=== PATIENT | male | born 1960 | race Caucasian/White ===

== ENCOUNTER 2019-08-23 05:50 | Inpatient (IN) | payer MEDICAID, OTHER ==
[~2019-08-23] VITALS: Ht 188 cm; Wt 149.8 kg
[2019-08-23] MEDS ORDERED: ONDANSETRON 2MG/ML, 2ML IVPush ONE (06:00)
[2019-08-23] MEDS ORDERED: SODIUM CHLORIDE FLUSH 10ML SYR IVF ONE (06:00)
[2019-08-23] MEDS ORDERED: SODIUM CHLORIDE 0.9% 1,000ML IVBOLUS ONE (06:00)
[2019-08-23] MEDS ORDERED: THIAMINE 100MG TABLET PO ONE (06:00)
--- NOTE | 2019-08-23 06:09 | NUR ---
Patient BIB ambulance c/o diarrhea secondary to ingesting rubbing alcohol x3 days ago. Patient states he is a chronic alcoholic but he wants to detox. His last alcoholic drink was last night around 2100. Patient appeared anxious and shaky. Patient does not have a history of seizure withdrawals.
[2019-08-23] MEDS ORDERED: ONDANSETRON 2MG/ML, 2ML ONE (06:21)
[2019-08-23] MEDS ORDERED: THIAMINE 100MG TABLET ONE (06:23)
[2019-08-23] MEDS: PLEASE ENTER ALLERGIES MC SCH ×3 (06:30→22:30)
[2019-08-23] MEDS ORDERED: LORazepam 2 MG/ML, 1ML ONE (06:56)
--- NOTE | 2019-08-23 06:59 | NUR ---
Report from Jese WATKINS. Pt resting in bed watching TV. Pt appears very tremulous throughout body, reports last alcohol was last night at 2100. Pt denies auditory/visual hallucinations or N/V. Discussed pt condition with Dr. Puentes, orders received for ativan 1mg IVP. Pt medicated per order, denies other needs.
[2019-08-23] MEDS ORDERED: LORazepam 2 MG/ML, 1ML IVPush ONE (07:00)
[2019-08-23 07:01] LABS: BASOPHILS # (AUTO) 0.01 x10^3/uL (0-0.1); BASOPHILS % (AUTO) 0 % (0-1); EOSINOPHILS # (AUTO) 0.07 x10^3/uL (0-0.4); EOSINOPHILS % (AUTO) 1 % (1-7); LYMPHOCYTES # (AUTO) 0.59 x10^3/uL (1-3.4); LYMPHOCYTES % (AUTO) 9 % (22-44); MD NO; MEAN CORPUSCULAR HEMOGLOBIN 35.6 pg (27.5-34.5); MEAN CORPUSCULAR HGB CONC 34.1 g/dL (33.2-36.2); MEAN CORPUSCULAR VOLUME 104.5 fL (81-97); MEAN PLATELET VOLUME 7.5 fL (7.4-10.4); MONOCYTES # (AUTO) 0.53 x10^3/uL (0.2-0.8); MONOCYTES % (AUTO) 8 % (2-9); NEUTROPHILS # (AUTO) 5.78 x10^3/uL (1.8-6.8); NEUTROPHILS % (AUTO) 83 % (42-75); PLATELET COUNT 147 x10^3/uL (130-400); RED BLOOD COUNT 4.11 x10^6/uL (4.38-5.82); RED CELL DISTRIBUTION WIDTH 15.9 % (9.4-14.8)
[2019-08-23 07:13] LABS: ALANINE AMINOTRANSFERASE 172 U/L (12-78); ALBUMIN 2.9 g/dL (3.4-5.0); ANION GAP 12 mmol/L (5-15); CALCIUM 8.4 mg/dL (8.5-10.1); CHLORIDE 92 mmol/L (98-107); CREATININE 1.22 mg/dL (0.7-1.3)
[2019-08-23 07:18] LABS: ALKALINE PHOSPHATASE 101 U/L (45-117); BILIRUBIN,TOTAL 1.6 mg/dL (0.2-1.0); TOTAL PROTEIN 6.3 g/dL (6.4-8.2); TROPONIN I 0.023 ng/mL (0.000-0.045)
[2019-08-23 08:10] LABS: ACETONE, SERUM Small (20mg/dL) mg/dL (Negative)
--- NOTE | 2019-08-23 08:19 | NUR ---
Pt's tremors improved significantly after medication. Pt reports feeling better, denies N/V, unable to produce stool sample at this time. Pt resting in bed, denies other needs. [facility] at bedside to evaluate pt for admission.
[2019-08-23] MEDS ORDERED: LABETALOL 5MG/ML, 20ML IVPush PRN (08:30)
[2019-08-23] MEDS ORDERED: ONDANSETRON 2MG/ML, 2ML IVPush PRN (08:30)
[2019-08-23] MEDS: NICOTINE 14MG/24 HR PATCH.TD24 TD SCH (08:30)
[2019-08-23] MEDS ORDERED: CHLORDIAZEPOXIDE 25 MG CAPSULE PO PRN (08:30)
[2019-08-23] MEDS ORDERED: MAGNESIUM SULFATE PMX 2GM/50ML 50 ML IV ONE ×2 (08:30)
[2019-08-23] MEDS ORDERED: PROMETHAZINE 25 MG/ML, 1ML IM PRN (08:30)
[2019-08-23] MEDS ORDERED: SODIUM CHLORIDE 0.9% 1,000 ML IV ONE (08:30)
[2019-08-23] MEDS ORDERED: LORazepam 1MG TABLET PO PRN ×4 (08:30)
[2019-08-23] MEDS ORDERED: LORazepam 2 MG/ML, 1ML IV PRN ×3 (08:30)
--- NOTE | 2019-08-23 08:56 | NUR ---
Report to Vick WATKINS.
[2019-08-23] MEDS ORDERED: MAGNESIUM SULFATE PMX 2GM/50ML 50 ML ONE (09:01)
[2019-08-23 10:07] LABS: HEMOGLOBIN A1C 6.1 % (4.2-6.3)
[2019-08-23] MEDS ORDERED: POTASSIUM CHLORIDE 40 MEQ in SODIUM CHLORIDE 0.9% 500 ML IV ONE (10:23)
[2019-08-23] MEDS: THIAMINE 100MG TABLET PO SCH ×2 (11:20→20:23)
[2019-08-23] MEDS: MULTIVITAMIN 1 TABLET PO SCH (11:20)
[2019-08-23] MEDS: CHLORDIAZEPOXIDE 25 MG CAPSULE PO SCH ×3 (11:20→20:23)
[2019-08-23] MEDS: SODIUM CHLORIDE 0.9% 1,000 ML IV SCH ×2 (11:22→16:31)
[2019-08-23] MEDS: FOLIC ACID 1 MG TABLET PO SCH (11:23)
[2019-08-23] MEDS: LORazepam 2 MG/ML, 1ML IV PRN ×2 (11:37→23:24)
[2019-08-23] MEDS: HEPARIN 5,000 UNITS/ML, 1ML SQ SCH ×2 (11:50→20:23)
[2019-08-23 12:02] VITALS: BP 100/61
[2019-08-23 12:10] LABS: ANION GAP 13 mmol/L (5-15); CALCIUM 8.6 mg/dL (8.5-10.1); CHLORIDE 91 mmol/L (98-107)
[2019-08-23 12:11] LABS: CREATININE 1.28 mg/dL (0.7-1.3)
[2019-08-23 12:43] LABS: INTERNATIONAL NORMALIZED RATIO 0.96 (0.93-1.1); PROTHROMBIN TIME 10.1 Seconds (9.6-11.5)
[2019-08-23] MEDS ORDERED: LISI-170 PO (13:12)
[2019-08-23] MEDS ORDERED: AMLO10TA8 PO (13:12)
[2019-08-23] MEDS ORDERED: LOVA40TA2 PO (13:12)
[2019-08-23] MEDS ORDERED: ASPI-515 PO (13:12)
[2019-08-23] MEDS ORDERED: SERT100T32 PO (13:12)
[2019-08-23] MEDS ORDERED: NAPR-685 PO (13:12)
[2019-08-23] MEDS ORDERED: BUSP7.5T3 PO (13:12)
[2019-08-23 14:04] VITALS: BP 129/80
[2019-08-23] MEDS: LORazepam 0.5MG TABLET PO PRN ×2 (14:32→18:35)
[2019-08-23] MEDS: POTASSIUM CHLORIDE 20 MEQ TAB.ER.PRT PO SCH (16:29)
[2019-08-23 16:42] LABS: ANION GAP 9 mmol/L (5-15); CALCIUM 8.4 mg/dL (8.5-10.1); CHLORIDE 94 mmol/L (98-107); CREATININE 1.24 mg/dL (0.7-1.3)
[2019-08-23 17:58] LABS: OSMOLALITY,URINE 569 mOsm/kg (500-850)
[2019-08-23 18:23] VITALS: BP 123/73
[2019-08-23 20:46] LABS: CLOSTRIDIUM DIFFICILE ANTIGEN NEGATIVE; CLOSTRIDIUM DIFFICILE TOXIN NEGATIVE (Negative)
[2019-08-23 21:29] LABS: ANION GAP 9 mmol/L (5-15); CALCIUM 8.1 mg/dL (8.5-10.1); CHLORIDE 96 mmol/L (98-107); CREATININE 1.11 mg/dL (0.7-1.3)
[2019-08-23 23:24] VITALS: BP 142/61
[2019-08-24 00:54] VITALS: BP 154/99
[2019-08-24] MEDS: HEPARIN 5,000 UNITS/ML, 1ML SQ SCH ×2 (05:14→12:46)
[2019-08-24 06:08] LABS: BASOPHILS # (AUTO) 0.02 x10^3/uL (0-0.1); BASOPHILS % (AUTO) 0 % (0-1); EOSINOPHILS # (AUTO) 0.02 x10^3/uL (0-0.4); EOSINOPHILS % (AUTO) 0 % (1-7); LYMPHOCYTES # (AUTO) 0.79 x10^3/uL (1-3.4); LYMPHOCYTES % (AUTO) 14 % (22-44); MD NO; MEAN CORPUSCULAR HEMOGLOBIN 34.9 pg (27.5-34.5); MEAN CORPUSCULAR HGB CONC 33.6 g/dL (33.2-36.2); MEAN PLATELET VOLUME 7.1 fL (7.4-10.4); MONOCYTES # (AUTO) 0.49 x10^3/uL (0.2-0.8); MONOCYTES % (AUTO) 8 % (2-9); NEUTROPHILS # (AUTO) 4.45 x10^3/uL (1.8-6.8); NEUTROPHILS % (AUTO) 77 % (42-75); PLATELET COUNT 146 x10^3/uL (130-400); RED BLOOD COUNT 3.67 x10^6/uL (4.38-5.82); RED CELL DISTRIBUTION WIDTH 15.9 % (9.4-14.8)
[2019-08-24 06:20] LABS: ALANINE AMINOTRANSFERASE 180 U/L (12-78); ALBUMIN 2.8 g/dL (3.4-5.0); ANION GAP 8 mmol/L (5-15); CALCIUM 8.1 mg/dL (8.5-10.1); CHLORIDE 98 mmol/L (98-107); CREATININE 0.96 mg/dL (0.7-1.3)
[2019-08-24 06:22] LABS: ALKALINE PHOSPHATASE 103 U/L (45-117); BILIRUBIN,TOTAL 1.3 mg/dL (0.2-1.0); TOTAL PROTEIN 6.1 g/dL (6.4-8.2)
[2019-08-24] MEDS: PLEASE ENTER ALLERGIES MC SCH (06:30)
[2019-08-24 06:50] VITALS: BP 160/102
[2019-08-24] MEDS ORDERED: PROPOFOL 100 ML IV ONE (08:00)
[2019-08-24] MEDS ORDERED: ETOMIDATE 20 MG/10 ML ONE (08:00)
[2019-08-24] MEDS: FOLIC ACID 1 MG TABLET PO SCH (08:09)
[2019-08-24] MEDS: POTASSIUM CHLORIDE 20 MEQ TAB.ER.PRT PO SCH (08:09)
[2019-08-24] MEDS: THIAMINE 100MG TABLET PO SCH (08:09)
[2019-08-24] MEDS: MULTIVITAMIN 1 TABLET PO SCH (08:09)
[2019-08-24] MEDS: NICOTINE 14MG/24 HR PATCH.TD24 TD SCH ×2 (08:10→12:46)
[2019-08-24] MEDS ORDERED: MAGNESIUM OXIDE 400 MG TABLET PO SCH (09:00)
[2019-08-24] MEDS ORDERED: ASPIRIN 81 MG TABLET EC PO SCH (10:00)
[2019-08-24] MEDS: AMLODIPINE 10 MG TAB PO SCH (10:19)
[2019-08-24] MEDS: LISINOPRIL 40 MG TABLET PO SCH (10:19)
[2019-08-24] MEDS: CHLORDIAZEPOXIDE 25 MG CAPSULE PO SCH (10:19)
[2019-08-24] MEDS: BUSPIRONE 10 MG TABLET PO SCH ×2 (10:19→22:35)
[2019-08-24] MEDS: SERTRALINE 100MG TABLET PO SCH (10:19)
[2019-08-24 11:07] LABS: ANION GAP 9 mmol/L (5-15); CALCIUM 8.6 mg/dL (8.5-10.1); CHLORIDE 98 mmol/L (98-107); CREATININE 0.94 mg/dL (0.7-1.3)
[2019-08-24] MEDS: LORazepam 2 MG/ML, 1ML IV PRN ×4 (12:34→15:25)
[2019-08-24 13:03] VITALS: BP 168/97
[2019-08-24] MEDS: SODIUM CHLORIDE 0.9% 1,000 ML IV SCH (13:44)
[2019-08-24] MEDS ORDERED: PHENOBARBITAL SODIUM 820 MG in SODIUM CHLORIDE 0.9% 50 ML IV ONE (16:00)
[2019-08-24] MEDS ORDERED: PHENOBARBITAL ETOH DETOX PER PHARMACY MC PRN (16:00)
[2019-08-24] MEDS: hydrALAzine 20 MG/ML, 1ML IVPush PRN (16:21)
[2019-08-24] MEDS ORDERED: THIAMINE 200 MG in SODIUM CHLORIDE 0.9% 50 ML IV ONE (17:00)
[2019-08-24] MEDS ORDERED: MAGNESIUM SULFATE PMX 2GM/50ML 50 ML IV ONE (17:00)
[2019-08-24 17:02] LABS: MEAN CORPUSCULAR HEMOGLOBIN 35.2 pg (27.5-34.5); MEAN CORPUSCULAR HGB CONC 32.9 g/dL (33.2-36.2); MEAN PLATELET VOLUME 7.5 fL (7.4-10.4); PLATELET COUNT 182 x10^3/uL (130-400); RED BLOOD COUNT 3.89 x10^6/uL (4.38-5.82); RED CELL DISTRIBUTION WIDTH 15.8 % (9.4-14.8)
[2019-08-24 17:10] LABS: ALANINE AMINOTRANSFERASE 276 U/L (12-78); ANION GAP 9 mmol/L (5-15); CALCIUM 8.5 mg/dL (8.5-10.1); CHLORIDE 100 mmol/L (98-107); CREATININE 1.05 mg/dL (0.7-1.3)
[2019-08-24 17:15] LABS: ALKALINE PHOSPHATASE 133 U/L (45-117); BILIRUBIN,TOTAL 1.1 mg/dL (0.2-1.0); TOTAL PROTEIN 6.6 g/dL (6.4-8.2); TROPONIN I < 0.015 ng/mL (0.000-0.045)
[2019-08-24] MEDS ORDERED: PHENYLEPHRINE 10 MG/ML ONE (17:22)
[2019-08-24] MEDS ORDERED: EPINEPHRINE 1 MG/ML, 1ML ONE (17:25)
[2019-08-24] MEDS ORDERED: NOREPINEPHRINE 4 MG in SODIUM CHLORIDE 0.9% 246 ML IV PRN ×3 (17:30→19:00)
[2019-08-24] MEDS ORDERED: DEXTROSE 50%, 50ML SYRINGE IVPush PRN (18:30)
[2019-08-24] MEDS: ALBUTEROL/IPRATROPIUM 2.5MG/0.5MG, 3 ML INLINE SCH ×3 (18:30→22:00)
[2019-08-24] MEDS ORDERED: DEXTROSE 4 GM TAB.CHEW PO PRN (18:30)
[2019-08-24] MEDS ORDERED: SENNA/DOCUSATE TABLET NG PRN (18:30)
[2019-08-24] MEDS ORDERED: LIDOCAINE-MPF 1%, 2ML ENDO PRN (18:30)
[2019-08-24] MEDS ORDERED: BISACODYL 10 MG SUPP PR PRN (18:30)
[2019-08-24] MEDS ORDERED: GLUCAGON 1 MG IM PRN (18:30)
[2019-08-24] MEDS ORDERED: SODIUM CHLORIDE 0.9% 1,000ML IV SCH (18:30)
[2019-08-24] MEDS ORDERED: SENNA 176 MG/5 ML ORAL SOL NG PRN (18:30)
[2019-08-24] MEDS ORDERED: PHARMACY MAY ADJ FOR RENAL FX MC SCH (18:30)
[2019-08-24] MEDS ORDERED: LACTULOSE 20 GM/30 ML UDC NG PRN (18:30)
[2019-08-24 18:59] LABS: MD YES
[2019-08-24 19:04] LABS: BAND#(MANUAL) 0.25 x10^3/uL; BANDS%(MANUAL) 2 % (0-7); BASOS#(MANUAL) 0.13 x10^3/uL (0-0.1); BASOS% (MANUAL) 1 % (0-1); EOS#(MANUAL) 0.25 x10^3/uL (0.0-0.4); EOS% (MANUAL) 2 % (1-7); LYMPH#(MANUAL) 3.63 x10^3/uL (1-3.4); LYMPHS% (MANUAL) 29 % (22-44); METAMYELOCYTES# (MANUAL) 0.13 x10^3/uL (0-0); METAMYELOCYTES% (MANUAL) 1 % (0-1); MONOS% (MANUAL) 4 % (2-9); MYELOCYTES# (MANUAL) 0.13 x10^3/uL (0-0); MYELOCYTES% (MANUAL) 1 % (0-0); NRBC % (MANUAL) 1 % (0-1); REACTIVE LYMPHS # (MANUAL) 0.63 x10^3/uL (0-0); REACTIVE LYMPHS % (MANUAL) 5 % (0-0); SEG#(MANUAL) 6.88 x10^3/uL (1.8-6.8); SEGS% (MANUAL) 55 % (42-75)
[2019-08-24 19:05] LABS: <PLATELET ESTIMATE> ADEQUATE; <PLT MORPHOLOGY> NORMAL PLT MORPH; POLYCHROMASIA 1+
[2019-08-24] MEDS ORDERED: VASOPRESSIN 100 UNIT in SODIUM CHLORIDE 0.9% 495 ML IV SCH (19:13)
[2019-08-24] MEDS ORDERED: NOREPINEPHRINE 8 MG in SODIUM CHLORIDE 0.9% 246 ML IV PRN (19:15)
[2019-08-24] MEDS ORDERED: SODIUM CHLORIDE 0.9% 1,000ML IVBOLUS PRN (19:30)
[2019-08-24] MEDS: NOREPINEPHRINE 8 MG in SODIUM CHLORIDE 0.9% 242 ML IV PRN ×2 (19:36→23:32)
[2019-08-24] MEDS: PROPOFOL 100 ML IV PRN ×3 (19:52→22:53)
[2019-08-24 20:54] LABS: CULTURE INDICATED? YES; MICROSCOPIC INDICATED
[2019-08-24 20:57] LABS: AMPHETAMINE SCREEN, URINE Negative (Negative); BARBITURATE SCREEN, URINE Positive (Negative); BENZODIAZEPINE SCREEN, URINE Positive (Negative); CANNABINOID SCREEN, URINE Negative (Negative); COCAINE SCREEN, URINE Negative (Negative); METHADONE SCREEN, URINE Negative (Negative); OPIATE SCREEN, URINE Negative (Negative)
[2019-08-24] MEDS ORDERED: OMNIPAQUE 350 MG/ML, 100ML BOTTLE ONE (20:57)
[2019-08-24] MEDS: SODIUM CHLORIDE FLUSH 10ML SYR IVF SCH (21:00)
[2019-08-24 22:22] LABS: TRIGLYCERIDES 165 mg/dL (50-200)
[2019-08-24 22:25] LABS: TROPONIN I 0.046 ng/mL (0.000-0.045)
[2019-08-24 22:30] LABS: OCCULT BLOOD POSITIVE (NEGATIVE)
[2019-08-24] MEDS: LOVASTATIN 40 MG TABLET PO SCH (22:35)
[2019-08-24] MEDS: FENTANYL PF 100 MCG/2ML IVPush PRN (23:02)
[2019-08-24] MEDS: FOLIC ACID 1 MG, THIAMINE 200 MG, MVI ADULT 10 ML in DEXTROSE 5% 1,000 ML IV SCH (23:05)
[2019-08-24 23:43] LABS: MEAN CORPUSCULAR HEMOGLOBIN 35.7 pg (27.5-34.5); MEAN CORPUSCULAR HGB CONC 33.6 g/dL (33.2-36.2); MEAN CORPUSCULAR VOLUME 106.1 fL (81-97); MEAN PLATELET VOLUME 7.4 fL (7.4-10.4); PLATELET COUNT 182 x10^3/uL (130-400); RED BLOOD COUNT 3.56 x10^6/uL (4.38-5.82); RED CELL DISTRIBUTION WIDTH 15.8 % (9.4-14.8)
[2019-08-24 23:49] LABS: ALANINE AMINOTRANSFERASE 297 U/L (12-78); ALBUMIN 2.6 g/dL (3.4-5.0); ANION GAP 11 mmol/L (5-15); CALCIUM 7.8 mg/dL (8.5-10.1); CHLORIDE 103 mmol/L (98-107); CREATININE 0.88 mg/dL (0.7-1.3)
[2019-08-24 23:51] LABS: ALKALINE PHOSPHATASE 103 U/L (45-117); BILIRUBIN,TOTAL 1.3 mg/dL (0.2-1.0); TOTAL PROTEIN 5.7 g/dL (6.4-8.2)
[2019-08-25] MEDS ORDERED: PHENOBARBITAL SODIUM 65 MG/ML, 1ML IM SCH
[2019-08-25 00:05] LABS: MD YES
[2019-08-25 00:09] LABS: BAND#(MANUAL) 0.09 x10^3/uL; BANDS%(MANUAL) 1 % (0-7); LYMPH#(MANUAL) 0.92 x10^3/uL (1-3.4); LYMPHS% (MANUAL) 10 % (22-44); METAMYELOCYTES# (MANUAL) 0.09 x10^3/uL (0-0); METAMYELOCYTES% (MANUAL) 1 % (0-1); MONOS#(MANUAL) 0.74 x10^3/uL (0.3-2.7); MONOS% (MANUAL) 8 % (2-9); REACTIVE LYMPHS # (MANUAL) 0.09 x10^3/uL (0-0); REACTIVE LYMPHS % (MANUAL) 1 % (0-0); SEG#(MANUAL) 7.27 x10^3/uL (1.8-6.8); SEGS% (MANUAL) 79 % (42-75)
[2019-08-25 00:10] LABS: <PLATELET ESTIMATE> ADEQUATE; <PLT MORPHOLOGY> NORMAL PLT MORPH; POLYCHROMASIA 1+
[2019-08-25] MEDS: HEPARIN 5,000 UNITS/ML, 1ML SQ SCH ×3 (00:29→17:59)
[2019-08-25] MEDS ORDERED: SODIUM CHLORIDE 0.9%, 500ML IVBOLUS ONE (00:30)
[2019-08-25] MEDS: PROPOFOL 100 ML IV PRN ×8 (00:51→19:12)
[2019-08-25] MEDS: ALBUTEROL/IPRATROPIUM 2.5MG/0.5MG, 3 ML INLINE SCH ×10 (01:35→22:30)
[2019-08-25] MEDS: NOREPINEPHRINE 8 MG in SODIUM CHLORIDE 0.9% 242 ML IV PRN ×2 (04:38→12:46)
[2019-08-25 05:10] LABS: BASOPHILS # (AUTO) 0.01 x10^3/uL (0-0.1); BASOPHILS % (AUTO) 0 % (0-1); EOSINOPHILS # (AUTO) 0.02 x10^3/uL (0-0.4); EOSINOPHILS % (AUTO) 0 % (1-7); LYMPHOCYTES # (AUTO) 0.67 x10^3/uL (1-3.4); LYMPHOCYTES % (AUTO) 8 % (22-44); MD NO; MEAN CORPUSCULAR HEMOGLOBIN 35.3 pg (27.5-34.5); MEAN CORPUSCULAR HGB CONC 33.4 g/dL (33.2-36.2); MEAN CORPUSCULAR VOLUME 105.8 fL (81-97); MEAN PLATELET VOLUME 7.4 fL (7.4-10.4); MONOCYTES # (AUTO) 0.06 x10^3/uL (0.2-0.8); MONOCYTES % (AUTO) 1 % (2-9); NEUTROPHILS # (AUTO) 7.23 x10^3/uL (1.8-6.8); NEUTROPHILS % (AUTO) 91 % (42-75); PLATELET COUNT 169 x10^3/uL (130-400); RED BLOOD COUNT 3.49 x10^6/uL (4.38-5.82)
[2019-08-25 05:17] LABS: ALANINE AMINOTRANSFERASE 255 U/L (12-78); ALBUMIN 2.4 g/dL (3.4-5.0); ANION GAP 11 mmol/L (5-15); CALCIUM 7.7 mg/dL (8.5-10.1); CHLORIDE 103 mmol/L (98-107); CREATININE 0.84 mg/dL (0.7-1.3)
[2019-08-25 05:19] LABS: ALKALINE PHOSPHATASE 97 U/L (45-117); BILIRUBIN,TOTAL 1.3 mg/dL (0.2-1.0); TOTAL PROTEIN 5.4 g/dL (6.4-8.2)
[2019-08-25 05:59] LABS: TROPONIN I 0.037 ng/mL (0.000-0.045)
[2019-08-25] MEDS: LISINOPRIL 40 MG TABLET PO SCH (08:51)
[2019-08-25] MEDS: AMLODIPINE 10 MG TAB PO SCH (08:52)
[2019-08-25] MEDS: SERTRALINE 100MG TABLET PO SCH (09:03)
[2019-08-25] MEDS: BUSPIRONE 10 MG TABLET PO SCH ×2 (09:03→21:15)
[2019-08-25] MEDS: SODIUM CHLORIDE FLUSH 10ML SYR IVF SCH ×2 (09:04→21:15)
[2019-08-25] MEDS: ASPIRIN 81 MG TABLET CHEW PO SCH (09:21)
[2019-08-25] MEDS ORDERED: CALCIUM CHLORIDE 13.6 MEQ in SODIUM CHLORIDE 0.9% 100 ML IV ONE (10:00)
[2019-08-25] MEDS: POTASSIUM CHLORIDE 20 MEQ PACKET PO SCH ×2 (10:19→17:58)
[2019-08-25] MEDS: PANTOPRAZOLE 40 MG IV IVPush SCH (10:19)
[2019-08-25] MEDS: SODIUM CHLORIDE 0.9% 1,000 ML IV SCH (12:46)
[2019-08-25] MEDS ORDERED: COSYNTROPIN 0.25 MG IM ONE (15:30)
[2019-08-25] MEDS: PIPERACILLIN/TAZO/PMX 3.375GM 50 ML IV SCH ×2 (15:32→21:15)
[2019-08-25] MEDS: FOLIC ACID 1 MG, THIAMINE 200 MG, MVI ADULT 10 ML in DEXTROSE 5% 1,000 ML IV SCH (17:51)
[2019-08-25] MEDS: LOVASTATIN 40 MG TABLET PO SCH (21:15)
[2019-08-26] MEDS: HEPARIN 5,000 UNITS/ML, 1ML SQ SCH ×3 (00:33→16:58)
[2019-08-26] MEDS: PROPOFOL 100 ML IV PRN ×7 (01:48→23:40)
[2019-08-26] MEDS: ALBUTEROL/IPRATROPIUM 2.5MG/0.5MG, 3 ML INLINE SCH ×6 (02:30→22:30)
[2019-08-26] MEDS: PIPERACILLIN/TAZO/PMX 3.375GM 50 ML IV SCH ×4 (03:30→20:11)
[2019-08-26 05:00] LABS: MEAN CORPUSCULAR HEMOGLOBIN 35.3 pg (27.5-34.5); MEAN CORPUSCULAR HGB CONC 33.2 g/dL (33.2-36.2); MEAN CORPUSCULAR VOLUME 106.3 fL (81-97); MEAN PLATELET VOLUME 7.4 fL (7.4-10.4); PLATELET COUNT 208 x10^3/uL (130-400); RED BLOOD COUNT 3.22 x10^6/uL (4.38-5.82); RED CELL DISTRIBUTION WIDTH 15.9 % (9.4-14.8)
[2019-08-26 05:51] LABS: BASOPHILS # (AUTO) 0.03 x10^3/uL (0-0.1); BASOPHILS % (AUTO) 0 % (0-1); EOSINOPHILS # (AUTO) 0.18 x10^3/uL (0-0.4); EOSINOPHILS % (AUTO) 3 % (1-7); LYMPHOCYTES # (AUTO) 1.02 x10^3/uL (1-3.4); LYMPHOCYTES % (AUTO) 14 % (22-44); MD SCAN; MONOCYTES % (AUTO) 9 % (2-9); NEUTROPHILS # (AUTO) 5.54 x10^3/uL (1.8-6.8); NEUTROPHILS % (AUTO) 74 % (42-75)
[2019-08-26 06:58] LABS: CHLORIDE 107 mmol/L (98-107)
[2019-08-26 07:03] LABS: ANION GAP 10 mmol/L (5-15); CALCIUM 8.5 mg/dL (8.5-10.1); CREATININE 0.83 mg/dL (0.7-1.3)
[2019-08-26] MEDS: PANTOPRAZOLE 40 MG IV IVPush SCH (08:52)
[2019-08-26] MEDS: BUSPIRONE 10 MG TABLET PO SCH ×2 (08:52→20:11)
[2019-08-26] MEDS: NICOTINE 14MG/24 HR PATCH.TD24 TD SCH (08:52)
[2019-08-26] MEDS: SERTRALINE 100MG TABLET PO SCH (08:53)
[2019-08-26] MEDS: ASPIRIN 81 MG TABLET CHEW PO SCH (08:53)
[2019-08-26] MEDS: LISINOPRIL 40 MG TABLET PO SCH (08:54)
[2019-08-26] MEDS: AMLODIPINE 10 MG TAB PO SCH (08:54)
[2019-08-26] MEDS: SODIUM CHLORIDE FLUSH 10ML SYR IVF SCH ×2 (08:54→20:12)
[2019-08-26] MEDS: SODIUM CHLORIDE 0.9% 1,000 ML IV SCH (08:56)
--- NOTE | 2019-08-26 13:02 | NUR ---
TF GOAL: with or without propofol: VITAL HIGH PROTEIN @ 85ML/HR
[2019-08-26] MEDS: LOVASTATIN 40 MG TABLET PO SCH (20:11)
[2019-08-26] MEDS: NOREPINEPHRINE 8 MG in SODIUM CHLORIDE 0.9% 242 ML IV PRN (20:11)
[2019-08-26] MEDS: FOLIC ACID 1 MG, THIAMINE 200 MG, MVI ADULT 10 ML in DEXTROSE 5% 1,000 ML IV SCH (21:45)
[2019-08-27] MEDS: HEPARIN 5,000 UNITS/ML, 1ML SQ SCH ×3 (01:02→17:49)
[2019-08-27] MEDS: PROPOFOL 100 ML IV PRN ×6 (02:23→17:50)
[2019-08-27] MEDS: ALBUTEROL/IPRATROPIUM 2.5MG/0.5MG, 3 ML INLINE SCH ×6 (02:30→22:41)
[2019-08-27] MEDS: PIPERACILLIN/TAZO/PMX 3.375GM 50 ML IV SCH ×4 (04:05→21:34)
[2019-08-27 05:04] LABS: ANION GAP 6 mmol/L (5-15); CALCIUM 8.3 mg/dL (8.5-10.1); CHLORIDE 106 mmol/L (98-107); TRIGLYCERIDES 178 mg/dL (50-200)
[2019-08-27 05:07] LABS: CREATININE 0.88 mg/dL (0.7-1.3)
[2019-08-27 05:08] LABS: BASOPHILS # (AUTO) 0.04 x10^3/uL (0-0.1); BASOPHILS % (AUTO) 1 % (0-1); EOSINOPHILS # (AUTO) 0.13 x10^3/uL (0-0.4); EOSINOPHILS % (AUTO) 2 % (1-7); LYMPHOCYTES # (AUTO) 0.96 x10^3/uL (1-3.4); LYMPHOCYTES % (AUTO) 16 % (22-44); MD NO; MEAN CORPUSCULAR HEMOGLOBIN 35.1 pg (27.5-34.5); MEAN CORPUSCULAR HGB CONC 33.7 g/dL (33.2-36.2); MEAN CORPUSCULAR VOLUME 104.2 fL (81-97); MONOCYTES # (AUTO) 0.81 x10^3/uL (0.2-0.8); MONOCYTES % (AUTO) 14 % (2-9); NEUTROPHILS % (AUTO) 67 % (42-75); PLATELET COUNT 249 x10^3/uL (130-400); RED BLOOD COUNT 3.14 x10^6/uL (4.38-5.82)
[2019-08-27] MEDS: SODIUM CHLORIDE FLUSH 10ML SYR IVF SCH ×2 (07:50→21:35)
[2019-08-27] MEDS: NICOTINE 14MG/24 HR PATCH.TD24 TD SCH (07:50)
[2019-08-27] MEDS: SERTRALINE 100MG TABLET PO SCH (07:51)
[2019-08-27] MEDS: ASPIRIN 81 MG TABLET CHEW PO SCH (07:51)
[2019-08-27] MEDS: BUSPIRONE 10 MG TABLET PO SCH ×2 (07:51→21:34)
[2019-08-27] MEDS: LISINOPRIL 40 MG TABLET PO SCH (07:52)
[2019-08-27] MEDS: AMLODIPINE 10 MG TAB PO SCH (07:52)
[2019-08-27] MEDS: PANTOPRAZOLE 40 MG IV IVPush SCH (07:52)
[2019-08-27] MEDS: FENTANYL PF 100 MCG/2ML IVPush PRN (07:52)
[2019-08-27] MEDS ORDERED: POTASSIUM CHLORIDE 40 MEQ in SODIUM CHLORIDE 0.9% 100 ML IV ONE (10:00)
[2019-08-27] MEDS ORDERED: PHENOBARBITAL SODIUM IV ONE ×2 (10:30→15:00)
[2019-08-27] MEDS ORDERED: SODIUM CHLORIDE 0.9% IV ONE ×2 (10:30→15:00)
[2019-08-27] MEDS ORDERED: PHENOBARBITAL SODIUM 65 MG/ML, 1ML IM SCH (16:30)
[2019-08-27] MEDS ORDERED: ATROPINE SYRINGE 0.1 MG/ML, 10ML ONE (21:29)
[2019-08-27] MEDS ORDERED: ATROPINE SYRINGE 0.1 MG/ML, 10ML IVPush PRN (21:30)
[2019-08-27] MEDS: LOVASTATIN 40 MG TABLET PO SCH (21:34)
[2019-08-27] MEDS: PHENOBARBITAL SODIUM 65 MG/ML, 1ML IM SCH (21:35)
[2019-08-27 21:49] LABS: TROPONIN I < 0.015 ng/mL (0.000-0.045)
[2019-08-28] MEDS: PROPOFOL 100 ML IV PRN ×2 (02:12→05:46)
[2019-08-28] MEDS: ALBUTEROL/IPRATROPIUM 2.5MG/0.5MG, 3 ML INLINE SCH ×6 (02:54→22:20)
[2019-08-28] MEDS: PIPERACILLIN/TAZO/PMX 3.375GM 50 ML IV SCH ×4 (03:33→21:30)
[2019-08-28] MEDS: HEPARIN 5,000 UNITS/ML, 1ML SQ SCH ×3 (03:33→16:40)
[2019-08-28 04:34] LABS: ANION GAP 8 mmol/L (5-15); CALCIUM 8.5 mg/dL (8.5-10.1); CHLORIDE 109 mmol/L (98-107); CREATININE 0.87 mg/dL (0.7-1.3)
[2019-08-28 05:00] LABS: BASOPHILS # (AUTO) 0.02 x10^3/uL (0-0.1); BASOPHILS % (AUTO) 0 % (0-1); EOSINOPHILS # (AUTO) 0.13 x10^3/uL (0-0.4); EOSINOPHILS % (AUTO) 3 % (1-7); LYMPHOCYTES # (AUTO) 0.88 x10^3/uL (1-3.4); LYMPHOCYTES % (AUTO) 21 % (22-44); MD NO; MEAN CORPUSCULAR HEMOGLOBIN 35.9 pg (27.5-34.5); MEAN CORPUSCULAR HGB CONC 33.9 g/dL (33.2-36.2); MEAN CORPUSCULAR VOLUME 106.1 fL (81-97); MEAN PLATELET VOLUME 7.3 fL (7.4-10.4); MONOCYTES # (AUTO) 0.71 x10^3/uL (0.2-0.8); MONOCYTES % (AUTO) 17 % (2-9); NEUTROPHILS # (AUTO) 2.53 x10^3/uL (1.8-6.8); NEUTROPHILS % (AUTO) 59 % (42-75); PLATELET COUNT 311 x10^3/uL (130-400); RED BLOOD COUNT 3.14 x10^6/uL (4.38-5.82); RED CELL DISTRIBUTION WIDTH 16.6 % (9.4-14.8)
[2019-08-28] MEDS: NICOTINE 14MG/24 HR PATCH.TD24 TD SCH (08:43)
[2019-08-28] MEDS: PANTOPRAZOLE 40 MG IV IVPush SCH (08:44)
[2019-08-28] MEDS: SERTRALINE 100MG TABLET PO SCH (08:45)
[2019-08-28] MEDS: BUSPIRONE 10 MG TABLET PO SCH ×2 (08:45→21:31)
[2019-08-28] MEDS: ASPIRIN 81 MG TABLET CHEW PO SCH (08:45)
[2019-08-28] MEDS: SODIUM CHLORIDE FLUSH 10ML SYR IVF SCH ×2 (08:50→21:31)
[2019-08-28] MEDS ORDERED: FUROSEMIDE 40 MG/4 ML ONE (08:52)
[2019-08-28] MEDS: AMLODIPINE 10 MG TAB PO SCH (08:54)
[2019-08-28] MEDS: FUROSEMIDE 40 MG/4 ML IV SCH ×2 (08:54→18:17)
[2019-08-28] MEDS: LISINOPRIL 40 MG TABLET PO SCH (08:54)
[2019-08-28] MEDS ORDERED: POTASSIUM CHLORIDE 10% 40 MEQ/30 ML UDC PO ONE (09:00)
[2019-08-28] MEDS: DEXMEDETOMIDINE 1,000 MCG in SODIUM CHLORIDE 0.9% 240 ML IV PRN ×2 (09:47→18:31)
[2019-08-28] MEDS: PHENOBARBITAL SODIUM 65 MG/ML, 1ML IM SCH ×2 (09:47→21:30)
[2019-08-28] MEDS ORDERED: POTASSIUM CHLORIDE 10% 20 MEQ/15 ML UDC PO ONE (17:00)
[2019-08-28] MEDS: LOVASTATIN 40 MG TABLET PO SCH (21:31)
[2019-08-28] MEDS: hydrALAzine 20 MG/ML, 1ML IVPush PRN (21:35)
[2019-08-29] MEDS: HEPARIN 5,000 UNITS/ML, 1ML SQ SCH ×3 (01:50→17:47)
[2019-08-29] MEDS: FENTANYL PF 100 MCG/2ML IVPush PRN (01:50)
[2019-08-29] MEDS: ALBUTEROL/IPRATROPIUM 2.5MG/0.5MG, 3 ML INLINE SCH ×6 (02:16→22:39)
[2019-08-29] MEDS: PIPERACILLIN/TAZO/PMX 3.375GM 50 ML IV SCH ×4 (03:00→21:43)
[2019-08-29] MEDS: hydrALAzine 20 MG/ML, 1ML IVPush PRN (05:07)
[2019-08-29 05:12] LABS: ANION GAP 8 mmol/L (5-15); CALCIUM 8.4 mg/dL (8.5-10.1); CHLORIDE 109 mmol/L (98-107)
[2019-08-29 05:14] LABS: BASOPHILS # (AUTO) 0.01 x10^3/uL (0-0.1); BASOPHILS % (AUTO) 0 % (0-1); EOSINOPHILS # (AUTO) 0.13 x10^3/uL (0-0.4); EOSINOPHILS % (AUTO) 2 % (1-7); LYMPHOCYTES # (AUTO) 0.77 x10^3/uL (1-3.4); LYMPHOCYTES % (AUTO) 14 % (22-44); MD NO; MEAN CORPUSCULAR HEMOGLOBIN 35.6 pg (27.5-34.5); MEAN CORPUSCULAR HGB CONC 33.9 g/dL (33.2-36.2); MEAN CORPUSCULAR VOLUME 105.2 fL (81-97); MEAN PLATELET VOLUME 7.3 fL (7.4-10.4); MONOCYTES # (AUTO) 0.82 x10^3/uL (0.2-0.8); MONOCYTES % (AUTO) 15 % (2-9); NEUTROPHILS % (AUTO) 69 % (42-75); PLATELET COUNT 403 x10^3/uL (130-400); RED CELL DISTRIBUTION WIDTH 16.4 % (9.4-14.8)
[2019-08-29] MEDS: DEXMEDETOMIDINE 1,000 MCG in SODIUM CHLORIDE 0.9% 240 ML IV PRN (05:33)
[2019-08-29] MEDS: PHENOBARBITAL SODIUM 65 MG/ML, 1ML IM SCH ×2 (09:00→21:43)
[2019-08-29] MEDS: ASPIRIN 81 MG TABLET CHEW PO SCH (09:00)
[2019-08-29] MEDS: SERTRALINE 100MG TABLET PO SCH (09:10)
[2019-08-29] MEDS: NICOTINE 14MG/24 HR PATCH.TD24 TD SCH (09:10)
[2019-08-29] MEDS: LISINOPRIL 40 MG TABLET PO SCH (09:10)
[2019-08-29] MEDS: BUSPIRONE 10 MG TABLET PO SCH ×2 (09:10→20:17)
[2019-08-29] MEDS: AMLODIPINE 10 MG TAB PO SCH (09:10)
[2019-08-29] MEDS: SODIUM CHLORIDE FLUSH 10ML SYR IVF SCH ×2 (09:11→21:43)
[2019-08-29] MEDS: PANTOPRAZOLE 40 MG IV IVPush SCH (09:34)
[2019-08-29] MEDS ORDERED: PHENOBARBITAL SODIUM 65 MG/ML, 1ML IM SCH (12:30)
[2019-08-29] MEDS ORDERED: FUROSEMIDE 20 MG/2 ML IV SCH (13:00)
[2019-08-29] MEDS: LOVASTATIN 40 MG TABLET PO SCH (20:17)
[2019-08-29] MEDS ORDERED: PHENOBARBITAL 20 MG/5 ML ORAL SOL NG SCH (21:00)
[2019-08-30] MEDS: PIPERACILLIN/TAZO/PMX 3.375GM 50 ML IV SCH ×4 (02:27→20:47)
[2019-08-30] MEDS: HEPARIN 5,000 UNITS/ML, 1ML SQ SCH ×3 (02:27→18:01)
[2019-08-30] MEDS: ALBUTEROL/IPRATROPIUM 2.5MG/0.5MG, 3 ML INLINE SCH ×6 (02:57→22:57)
[2019-08-30 05:01] LABS: MEAN CORPUSCULAR HEMOGLOBIN 35.4 pg (27.5-34.5); MEAN CORPUSCULAR HGB CONC 33.3 g/dL (33.2-36.2); MEAN CORPUSCULAR VOLUME 106.4 fL (81-97); MEAN PLATELET VOLUME 7.5 fL (7.4-10.4); PLATELET COUNT 414 x10^3/uL (130-400); RED BLOOD COUNT 3.44 x10^6/uL (4.38-5.82); RED CELL DISTRIBUTION WIDTH 16.4 % (9.4-14.8)
[2019-08-30 05:08] LABS: ALBUMIN 2.1 g/dL (3.4-5.0); ANION GAP 9 mmol/L (5-15); CALCIUM 8.5 mg/dL (8.5-10.1); CHLORIDE 110 mmol/L (98-107)
[2019-08-30 05:12] LABS: ALANINE AMINOTRANSFERASE 68 U/L (12-78); ALKALINE PHOSPHATASE 90 U/L (45-117); BILIRUBIN, DIRECT 0.4 mg/dL (0.1-0.2); BILIRUBIN,INDIRECT 0.5 mg/dL (0.0-2.0); BILIRUBIN,TOTAL 0.9 mg/dL (0.2-1.0); CREATININE 0.88 mg/dL (0.7-1.3); TOTAL PROTEIN 5.9 g/dL (6.4-8.2)
[2019-08-30 05:35] LABS: MD YES
[2019-08-30 05:37] LABS: <PLATELET ESTIMATE> ADEQUATE; <PLT MORPHOLOGY> NORMAL PLT MORPH; ANISOCYTOSIS 1+; BAND#(MANUAL) 0.08 x10^3/uL; BANDS%(MANUAL) 1 % (0-7); EOS#(MANUAL) 0.42 x10^3/uL (0.0-0.4); EOS% (MANUAL) 5 % (1-7); LYMPH#(MANUAL) 0.67 x10^3/uL (1-3.4); LYMPHS% (MANUAL) 8 % (22-44); METAMYELOCYTES# (MANUAL) 0.17 x10^3/uL (0-0); METAMYELOCYTES% (MANUAL) 2 % (0-1); MONOS#(MANUAL) 1.09 x10^3/uL (0.3-2.7); MONOS% (MANUAL) 13 % (2-9); MYELOCYTES# (MANUAL) 0.25 x10^3/uL (0-0); MYELOCYTES% (MANUAL) 3 % (0-0); SEG#(MANUAL) 5.71 x10^3/uL (1.8-6.8); SEGS% (MANUAL) 68 % (42-75); TOXIC GRAN 1+
[2019-08-30] MEDS ORDERED: POTASSIUM CHLORIDE 30 MEQ in SODIUM CHLORIDE 0.9% 100 ML IV ONE (07:00)
[2019-08-30] MEDS ORDERED: POTASSIUM CHLORIDE 20 MEQ TAB.ER.PRT PO SCH (08:00)
[2019-08-30] MEDS: AMLODIPINE 10 MG TAB PO SCH (09:00)
[2019-08-30] MEDS: LISINOPRIL 40 MG TABLET PO SCH (09:00)
[2019-08-30] MEDS: PHENOBARBITAL SODIUM 65 MG/ML, 1ML IM SCH (09:00)
[2019-08-30] MEDS: NICOTINE 14MG/24 HR PATCH.TD24 TD SCH ×2 (10:22→10:34)
[2019-08-30] MEDS: SODIUM CHLORIDE FLUSH 10ML SYR IVF SCH ×2 (10:22→20:53)
[2019-08-30] MEDS: ASPIRIN 81 MG TABLET CHEW PO SCH (10:23)
[2019-08-30] MEDS: BUSPIRONE 10 MG TABLET PO SCH ×2 (10:23→20:47)
[2019-08-30] MEDS: PANTOPRAZOLE 40 MG IV IVPush SCH (10:24)
[2019-08-30] MEDS: SERTRALINE 100MG TABLET PO SCH (10:24)
[2019-08-30] MEDS: PHENOBARBITAL 20 MG/5 ML ORAL SOL PO SCH ×2 (12:04→20:47)
[2019-08-30] MEDS ORDERED: FUROSEMIDE 20 MG/2 ML IV SCH (17:00)
[2019-08-30] MEDS: FUROSEMIDE 20 MG/2 ML IV SCH (17:00)
[2019-08-30] MEDS: LOVASTATIN 40 MG TABLET PO SCH (20:47)
[2019-08-30] MEDS: ACETAMINOPHEN 325 MG TABLET PO PRN (20:47)
[2019-08-30 21:10] LABS: TROPONIN I < 0.015 ng/mL (0.000-0.045)
[2019-08-30] MEDS: TRAZODONE 50MG TABLET PO PRN (21:32)
[2019-08-31] MEDS: HEPARIN 5,000 UNITS/ML, 1ML SQ SCH ×3 (01:39→17:29)
[2019-08-31] MEDS ORDERED: morphine SULFATE 10 MG/ML, 1ML IVPush ONE (02:30)
[2019-08-31] MEDS: PIPERACILLIN/TAZO/PMX 3.375GM 50 ML IV SCH ×4 (03:09→21:16)
[2019-08-31] MEDS: ALBUTEROL/IPRATROPIUM 2.5MG/0.5MG, 3 ML INLINE SCH ×6 (04:00→22:24)
[2019-08-31 04:43] LABS: BASOPHILS # (AUTO) 0.02 x10^3/uL (0-0.1); BASOPHILS % (AUTO) 0 % (0-1); EOSINOPHILS # (AUTO) 0.24 x10^3/uL (0-0.4); EOSINOPHILS % (AUTO) 4 % (1-7); LYMPHOCYTES # (AUTO) 0.82 x10^3/uL (1-3.4); LYMPHOCYTES % (AUTO) 12 % (22-44); MD NO; MEAN CORPUSCULAR HEMOGLOBIN 35.1 pg (27.5-34.5); MEAN CORPUSCULAR HGB CONC 33.2 g/dL (33.2-36.2); MEAN CORPUSCULAR VOLUME 105.7 fL (81-97); MEAN PLATELET VOLUME 6.8 fL (7.4-10.4); MONOCYTES % (AUTO) 11 % (2-9); NEUTROPHILS # (AUTO) 5.15 x10^3/uL (1.8-6.8); NEUTROPHILS % (AUTO) 73 % (42-75); PLATELET COUNT 418 x10^3/uL (130-400); RED CELL DISTRIBUTION WIDTH 15.9 % (9.4-14.8)
[2019-08-31 07:43] LABS: ANION GAP 8 mmol/L (5-15); CALCIUM 8.4 mg/dL (8.5-10.1); CHLORIDE 107 mmol/L (98-107); CREATININE 0.76 mg/dL (0.7-1.3)
[2019-08-31] MEDS ORDERED: POTASSIUM CHLORIDE 20 MEQ TAB.ER.PRT PO SCH (08:00)
[2019-08-31] MEDS: FUROSEMIDE 20 MG/2 ML IV SCH ×2 (08:00→17:29)
[2019-08-31] MEDS: BUSPIRONE 10 MG TABLET PO SCH ×2 (08:29→21:16)
[2019-08-31] MEDS: SERTRALINE 100MG TABLET PO SCH (08:29)
[2019-08-31] MEDS: ASPIRIN 81 MG TABLET CHEW PO SCH (08:29)
[2019-08-31] MEDS: NICOTINE 14MG/24 HR PATCH.TD24 TD SCH (08:30)
[2019-08-31] MEDS: SODIUM CHLORIDE FLUSH 10ML SYR IVF SCH ×2 (08:30→21:16)
[2019-08-31] MEDS: PANTOPRAZOLE 40 MG IV IVPush SCH (08:31)
[2019-08-31] MEDS: PHENOBARBITAL 20 MG/5 ML ORAL SOL PO SCH (08:32)
[2019-08-31] MEDS: OXYcodone IR 5MG TABLET PO PRN ×3 (12:12→21:17)
[2019-08-31] MEDS: LOVASTATIN 40 MG TABLET PO SCH (21:16)
[2019-08-31] MEDS: PHENOBARBITAL 20 MG/5 ML ORAL SOL NG SCH (21:16)
[2019-08-31] MEDS: TRAZODONE 50MG TABLET PO PRN (23:25)
[2019-09-01] MEDS: ACETAMINOPHEN 325 MG TABLET PO PRN (01:42)
[2019-09-01] MEDS: OXYcodone IR 5MG TABLET PO PRN ×2 (01:43→09:11)
[2019-09-01] MEDS: HEPARIN 5,000 UNITS/ML, 1ML SQ SCH ×3 (01:45→17:43)
[2019-09-01] MEDS: PIPERACILLIN/TAZO/PMX 3.375GM 50 ML IV SCH (03:15)
[2019-09-01 05:07] LABS: ANION GAP 7 mmol/L (5-15); CALCIUM 8.4 mg/dL (8.5-10.1); CHLORIDE 104 mmol/L (98-107); CREATININE 0.84 mg/dL (0.7-1.3)
[2019-09-01] MEDS: ALBUTEROL/IPRATROPIUM 2.5MG/0.5MG, 3 ML INLINE SCH ×2 (06:00→10:00)
[2019-09-01] MEDS ORDERED: MAGNESIUM SULFATE PMX 2GM/50ML 50 ML IV ONE (07:00)
[2019-09-01] MEDS: NICOTINE 14MG/24 HR PATCH.TD24 TD SCH (08:30)
[2019-09-01] MEDS: BUSPIRONE 10 MG TABLET PO SCH ×2 (09:07→20:20)
[2019-09-01] MEDS: PANTOPRAZOLE 40 MG IV IVPush SCH (09:07)
[2019-09-01] MEDS: POTASSIUM CHLORIDE 20 MEQ TAB.ER.PRT PO SCH ×2 (09:07→20:21)
[2019-09-01] MEDS: SERTRALINE 100MG TABLET PO SCH (09:07)
[2019-09-01] MEDS: ASPIRIN 81 MG TABLET CHEW PO SCH (09:07)
[2019-09-01] MEDS: GUAIFENESIN ER 600 MG TABLET PO SCH ×2 (09:07→20:21)
[2019-09-01] MEDS: PHENOBARBITAL 20 MG/5 ML ORAL SOL NG SCH ×2 (09:11→21:50)
[2019-09-01] MEDS ORDERED: ALBUTEROL/IPRATROPIUM 2.5MG/0.5MG, 3 ML NPPB PRN (10:30)
[2019-09-01] MEDS: SODIUM CHLORIDE FLUSH 10ML SYR IVF SCH ×2 (11:16→20:20)
[2019-09-01] MEDS: LISINOPRIL 20 MG TABLET PO SCH ×3 (11:21→20:30)
[2019-09-01] MEDS: KETOROLAC 30 MG/1 ML IVPush PRN ×2 (11:25→17:41)
[2019-09-01] MEDS: LOVASTATIN 40 MG TABLET PO SCH (20:21)
[2019-09-01 20:30] VITALS: BP 112/61
[2019-09-01] MEDS: TRAZODONE 50MG TABLET PO PRN (21:53)
[2019-09-02] MEDS: KETOROLAC 30 MG/1 ML IVPush PRN ×2 (01:10→18:19)
[2019-09-02] MEDS: HEPARIN 5,000 UNITS/ML, 1ML SQ SCH ×3 (01:12→18:19)
[2019-09-02 01:45] VITALS: BP 118/71
[2019-09-02 04:53] LABS: BASOPHILS # (AUTO) 0.02 x10^3/uL (0-0.1); BASOPHILS % (AUTO) 0 % (0-1); EOSINOPHILS # (AUTO) 0.29 x10^3/uL (0-0.4); EOSINOPHILS % (AUTO) 4 % (1-7); LYMPHOCYTES # (AUTO) 1.18 x10^3/uL (1-3.4); LYMPHOCYTES % (AUTO) 14 % (22-44); MD NO; MEAN CORPUSCULAR HEMOGLOBIN 35.5 pg (27.5-34.5); MEAN CORPUSCULAR HGB CONC 33.1 g/dL (33.2-36.2); MEAN CORPUSCULAR VOLUME 107.1 fL (81-97); MEAN PLATELET VOLUME 7.2 fL (7.4-10.4); MONOCYTES # (AUTO) 0.84 x10^3/uL (0.2-0.8); MONOCYTES % (AUTO) 10 % (2-9); NEUTROPHILS # (AUTO) 5.95 x10^3/uL (1.8-6.8); NEUTROPHILS % (AUTO) 72 % (42-75); PLATELET COUNT 421 x10^3/uL (130-400); RED BLOOD COUNT 3.44 x10^6/uL (4.38-5.82); RED CELL DISTRIBUTION WIDTH 15.9 % (9.4-14.8)
[2019-09-02 05:00] LABS: ALANINE AMINOTRANSFERASE 52 U/L (12-78); ALBUMIN 2.3 g/dL (3.4-5.0); ANION GAP 5 mmol/L (5-15); CALCIUM 8.8 mg/dL (8.5-10.1); CHLORIDE 107 mmol/L (98-107); CREATININE 0.84 mg/dL (0.7-1.3)
[2019-09-02 05:03] LABS: ALKALINE PHOSPHATASE 96 U/L (45-117); BILIRUBIN,TOTAL 0.5 mg/dL (0.2-1.0); TOTAL PROTEIN 6.1 g/dL (6.4-8.2)
[2019-09-02 06:01] VITALS: BP 146/77
[2019-09-02 08:55] VITALS: BP 134/83
[2019-09-02] MEDS: BUSPIRONE 10 MG TABLET PO SCH ×2 (09:53→20:08)
[2019-09-02] MEDS: GUAIFENESIN ER 600 MG TABLET PO SCH ×2 (09:53→20:08)
[2019-09-02] MEDS: LISINOPRIL 20 MG TABLET PO SCH ×2 (09:54→20:08)
[2019-09-02] MEDS: ASPIRIN 81 MG TABLET CHEW PO SCH (09:55)
[2019-09-02] MEDS: SERTRALINE 100MG TABLET PO SCH (09:55)
[2019-09-02] MEDS: POTASSIUM CHLORIDE 20 MEQ TAB.ER.PRT PO SCH (09:56)
[2019-09-02] MEDS: PANTOPRAZOLE 40 MG IV IVPush SCH (09:58)
[2019-09-02] MEDS: SODIUM CHLORIDE FLUSH 10ML SYR IVF SCH ×2 (09:59→20:09)
[2019-09-02] MEDS: PHENOBARBITAL 20 MG/5 ML ORAL SOL NG SCH (10:02)
[2019-09-02] MEDS: LIDODERM 5% PATCH TD SCH (14:16)
[2019-09-02 14:21] VITALS: BP 112/60
[2019-09-02 17:15] VITALS: BP 127/81
[2019-09-02] MEDS: LOVASTATIN 40 MG TABLET PO SCH (20:08)
[2019-09-02 22:00] VITALS: BP 125/83
[2019-09-03] VITALS (8 sets, daily range): BP systolic 107–163; BP diastolic 74–97
[2019-09-03] MEDS: KETOROLAC 30 MG/1 ML IVPush PRN ×3 (00:35→22:12)
[2019-09-03] MEDS: LIDODERM REMOVE PATCH NOTE XX SCH (02:00)
[2019-09-03] MEDS: HEPARIN 5,000 UNITS/ML, 1ML SQ SCH ×3 (02:56→18:34)
[2019-09-03] MEDS: PANTOPROZOLE 40MG TABLET PO SCH (08:01)
[2019-09-03] MEDS: SERTRALINE 100MG TABLET PO SCH (08:01)
[2019-09-03] MEDS: LISINOPRIL 20 MG TABLET PO SCH ×2 (08:01→22:12)
[2019-09-03] MEDS: ASPIRIN 81 MG TABLET CHEW PO SCH (08:01)
[2019-09-03] MEDS: GUAIFENESIN ER 600 MG TABLET PO SCH ×2 (08:01→22:12)
[2019-09-03] MEDS: BUSPIRONE 10 MG TABLET PO SCH ×2 (08:01→22:11)
[2019-09-03] MEDS: SODIUM CHLORIDE FLUSH 10ML SYR IVF SCH ×2 (09:54→22:13)
[2019-09-03] MEDS: AMLODIPINE 5 MG TABLET PO SCH (14:16)
[2019-09-03] MEDS: LIDODERM 5% PATCH TD SCH (14:17)
[2019-09-03] MEDS: LOVASTATIN 40 MG TABLET PO SCH (22:14)
[2019-09-04] MEDS: LIDODERM REMOVE PATCH NOTE XX SCH (01:49)
[2019-09-04] MEDS: OXYcodone IR 5MG TABLET PO PRN (01:53)
[2019-09-04] MEDS: HEPARIN 5,000 UNITS/ML, 1ML SQ SCH ×3 (01:53→23:46)
[2019-09-04] MEDS: TRAZODONE 50MG TABLET PO PRN ×2 (01:53→21:49)
[2019-09-04 01:59] VITALS: BP 127/80
[2019-09-04 05:19] LABS: ANION GAP 5 mmol/L (5-15); CHLORIDE 108 mmol/L (98-107); CREATININE 0.72 mg/dL (0.7-1.3)
[2019-09-04 05:26] LABS: BASOPHILS # (AUTO) 0.03 x10^3/uL (0-0.1); BASOPHILS % (AUTO) 0 % (0-1); EOSINOPHILS # (AUTO) 0.31 x10^3/uL (0-0.4); EOSINOPHILS % (AUTO) 3 % (1-7); LYMPHOCYTES # (AUTO) 1.55 x10^3/uL (1-3.4); LYMPHOCYTES % (AUTO) 17 % (22-44); MD NO; MEAN CORPUSCULAR HEMOGLOBIN 35.3 pg (27.5-34.5); MEAN CORPUSCULAR HGB CONC 33.2 g/dL (33.2-36.2); MEAN CORPUSCULAR VOLUME 106.1 fL (81-97); MEAN PLATELET VOLUME 7.7 fL (7.4-10.4); MONOCYTES # (AUTO) 0.85 x10^3/uL (0.2-0.8); MONOCYTES % (AUTO) 9 % (2-9); NEUTROPHILS # (AUTO) 6.35 x10^3/uL (1.8-6.8); NEUTROPHILS % (AUTO) 70 % (42-75); PLATELET COUNT 410 x10^3/uL (130-400); RED BLOOD COUNT 3.44 x10^6/uL (4.38-5.82); RED CELL DISTRIBUTION WIDTH 15.5 % (9.4-14.8)
[2019-09-04] MEDS: KETOROLAC 30 MG/1 ML IVPush PRN ×3 (05:53→23:42)
[2019-09-04] MEDS: PANTOPROZOLE 40MG TABLET PO SCH (05:53)
[2019-09-04 08:30] VITALS: BP 184/117
[2019-09-04] MEDS: ASPIRIN 81 MG TABLET CHEW PO SCH (08:44)
[2019-09-04] MEDS: AMLODIPINE 5 MG TABLET PO SCH (08:44)
[2019-09-04] MEDS: BUSPIRONE 10 MG TABLET PO SCH ×2 (08:44→21:48)
[2019-09-04] MEDS: SERTRALINE 100MG TABLET PO SCH (08:44)
[2019-09-04] MEDS: SODIUM CHLORIDE FLUSH 10ML SYR IVF SCH ×2 (08:45→21:49)
[2019-09-04] MEDS: LISINOPRIL 20 MG TABLET PO SCH ×2 (08:45→21:49)
[2019-09-04] MEDS: GUAIFENESIN ER 600 MG TABLET PO SCH ×2 (08:45→21:48)
[2019-09-04 10:57] VITALS: BP 138/83
[2019-09-04 15:24] VITALS: BP 116/74
[2019-09-04] MEDS: LIDODERM 5% PATCH TD SCH (17:06)
[2019-09-04 19:35] VITALS: BP 136/91
[2019-09-04] MEDS: LOVASTATIN 40 MG TABLET PO SCH (21:00)
[2019-09-05 01:12] VITALS: BP 125/80
[2019-09-05] MEDS: LIDODERM REMOVE PATCH NOTE XX SCH (02:08)
[2019-09-05] MEDS: OXYcodone IR 5MG TABLET PO PRN (03:01)
[2019-09-05] MEDS: PANTOPROZOLE 40MG TABLET PO SCH (06:20)
[2019-09-05] MEDS: HEPARIN 5,000 UNITS/ML, 1ML SQ SCH (06:22)
[2019-09-05 07:00] VITALS: BP 152/99
[2019-09-05] MEDS: GUAIFENESIN ER 600 MG TABLET PO SCH (08:52)
[2019-09-05] MEDS: AMLODIPINE 5 MG TABLET PO SCH (08:52)
[2019-09-05] MEDS: BUSPIRONE 10 MG TABLET PO SCH (08:53)
[2019-09-05] MEDS: LISINOPRIL 20 MG TABLET PO SCH (08:53)
[2019-09-05] MEDS: ASPIRIN 81 MG TABLET CHEW PO SCH (08:55)
[2019-09-05] MEDS: SODIUM CHLORIDE FLUSH 10ML SYR IVF SCH (08:55)
[2019-09-05] MEDS: SERTRALINE 100MG TABLET PO SCH (08:59)
[2019-09-05] MEDS ORDERED: LIDO700A20 TD (11:07)
[2019-09-05] MEDS ORDERED: ACET325T26 PO (11:07)
[2019-09-05] MEDS ORDERED: GUAI600T31 PO (11:07)
[2019-09-05] MEDS ORDERED: AMLO-150 PO (11:07)
[2019-09-05] MEDS ORDERED: ALBU8.5H8 INH (11:07)
[2019-09-05] MEDS ORDERED: TIOT18CA INH (11:07)
[2019-09-05] MEDS: LIDODERM 5% PATCH TD SCH (13:30)
[2019-09-05 14:07] VITALS: BP 158/93
== END 2019-09-05 15:26 | disposition home or self-care (01) | DRG 130 ==
LOC: ED 08:49 → EDIP 08:50 → 5SO 10:14 → ICU 08-24 15:46 → CCU 09-01 18:02 → 5SO 09-03 15:10
PROVIDERS: ADMIT Internal Medicine; ATTEND Hospitalist
PROC: 5A1955Z Respiratory Ventilation, Greater than 96 Consecutive Hours (ICD-10-PCS; principal; 2019-08-24)
PROC: 0BH17EZ Insertion of Endotracheal Airway into Trachea, Via Natural or Artificial Opening (ICD-10-PCS; 2019-08-24)
PROC: 0T9B70Z Drainage of Bladder with Drainage Device, Via Natural or Artificial Opening (ICD-10-PCS; 2019-08-24)
PROC: 02HV33Z Insertion of Infusion Device into Superior Vena Cava, Percutaneous Approach (ICD-10-PCS; 2019-08-24)
PROC: B543ZZA Ultrasonography of Right Jugular Veins, Guidance (ICD-10-PCS; 2019-08-24)
PROC: 03HY33Z Insertion of Infusion Device into Upper Artery, Percutaneous Approach (ICD-10-PCS; 2019-08-24)
PROC: 5A09357 Assistance with Respiratory Ventilation, Less than 24 Consecutive Hours, Continuous Positive Airway Pressure (ICD-10-PCS; 2019-08-29)
PROC: 5A09357 Assistance with Respiratory Ventilation, Less than 24 Consecutive Hours, Continuous Positive Airway Pressure (ICD-10-PCS; 2019-08-30)
DX: J96.01 Acute respiratory failure with hypoxia (principal); I46.9 Cardiac arrest, cause unspecified; G92 Toxic encephalopathy; I50.31 Acute diastolic (congestive) heart failure; I95.9 Hypotension, unspecified; Z99.81 Dependence on supplemental oxygen; E87.1 Hypo-osmolality and hyponatremia; E83.42 Hypomagnesemia; E87.2 Acidosis; E66.2 Morbid (severe) obesity with alveolar hypoventilation; I11.0 Hypertensive heart disease with heart failure; D72.829 Elevated white blood cell count, unspecified; D75.89 Other specified diseases of blood and blood-forming organs; E78.5 Hyperlipidemia, unspecified; E86.0 Dehydration; E86.1 Hypovolemia; E87.6 Hypokalemia; F10.239 Alcohol dependence with withdrawal, unspecified; F17.200 Nicotine dependence, unspecified, uncomplicated; F32.9 Major depressive disorder, single episode, unspecified; K70.10 Alcoholic hepatitis without ascites; K76.0 Fatty (change of) liver, not elsewhere classified; J98.11 Atelectasis; R00.0 Tachycardia, unspecified; R53.81 Other malaise; R73.09 Other abnormal glucose; R94.31 Abnormal electrocardiogram [ECG] [EKG]; Z68.41 Body mass index [BMI] 40.0-44.9, adult; Z99.11 Dependence on respirator [ventilator] status
CPT/HCPCS: 36415; 36600; 71045; 71275; 74022; 76700; 80048; 80053; 80076; 80307; 81001; 82010; 82272; 82330; 82533; 82803; 83036; 83605; 83690; 83735; 83930; 83935; 84100; 84145; 84443; 84478; 84484; 85025; 85610; 85730; 87070; 87081; 87086; 87205; 87324; 89055; 92950; 93005; 93308; 93321; 93325; 94002; 94003; 94150; 94640; 94660; 96374; C8929; G0378; J1644; J1885; J1940; J2405; J2543; J2560; J2704; J3010; J3411; J3480; J7070; J7620; Q9957; Q9967; C9113; J0360; J0834; J2060; J2270; J3475; J7030; J7040; J7050

== ENCOUNTER 2019-10-16 11:11 | Emergency (ER) | payer MEDICAID ==
[~2019-10-16] VITALS: Ht 188 cm; Wt 145.0 kg
[~2019-10-16 11:11] MED LIST: ACET325T26 PO; ALBU8.5H8 INH; AMLO-150 PO; AMLO10TA8 PO; ASPI-515 PO; BUSP7.5T3 PO; GUAI600T31 PO; LIDO700A20 TD; LISI-170 PO; LOVA40TA2 PO; NAPR-685 PO; SERT100T32 PO; TIOT18CA INH
--- NOTE | 2019-10-16 11:58 | NUR ---
PT INCONTINENT OF STOOL AND URINE AND CLEANED OF SAME. PT A&O, NO DISTRESS. LABS DRAWN AND AWAITING CT
[2019-10-16 12:17] LABS: ANION GAP 14 mmol/L (5-15); CALCIUM 8.1 mg/dL (8.5-10.1); CHLORIDE 101 mmol/L (98-107); CREATININE 1.02 mg/dL (0.7-1.3)
--- NOTE | 2019-10-16 12:57 | NUR ---
UPON RETURN FROM CT AND XRAY, OXYGEN INCREASED TO 6L AND PLACED IN MOUTH PT IS A MOUTH BREATHER. WILL CONTINUE TO MONITOR
--- NOTE | 2019-10-16 13:35 | NUR ---
OXYGEN SATURATION NOT MAINTAINING WHILE PT SLEEPING. SIMPLE MASK PLACED AT 3L
--- NOTE | 2019-10-16 14:20 | NUR ---
PT DROWSY, SLEEPING BUT AROUSABLE. CONTINUE TO MONITOR
--- NOTE | 2019-10-16 15:43 | NUR ---
PT SLEEPING, CONTINUE TO MONITOR
--- NOTE | 2019-10-16 16:30 | NUR ---
PT ABLE TO AMBULATE WITHOUT ASSISTANCE, STEADY GAIT. PROVIDED CLEAN CLOTHES. TO DISCHARGE WINDOW IN WHEELCHAIR AND PT TO USE TAXI.
--- NOTE | 2019-10-16 16:49 | NUR ---
WHILE PT AT DISCHARGE WINDOW, INFORMED NEWS REPORTER HE DOES NOT FEEL SAFE GOING HOME BECAUSE HE IS NOT FEELING WELL AND FEELS LIGHTHEADED. PT BROUGHT BACK TO ROOM. PT DRINKING WATER AND MEAL TRAY ORDERED
[2019-10-16 17:25] VITALS: BP 104/51
--- NOTE | 2019-10-16 17:43 | NUR ---
PT SITTING UP ON SIDE OF BED EATING. MD RE-EVALUATING PT
--- NOTE | 2019-10-16 18:28 | NUR ---
PT AGAIN GIVEN DISCHARGE INSTRUCTIONS AFTER EATING AND DRINKING A LITER OF WATER. TO DISCHARGE WINDOW WITH TAXI VOUCHER
== END 2019-10-16 18:31 | disposition home or self-care (01) ==
LOC: ED 11:33
DX: S09.8XXA Other specified injuries of head, initial encounter (principal); G92 Toxic encephalopathy; F10.129 Alcohol abuse with intoxication, unspecified; I11.9 Hypertensive heart disease without heart failure; R41.82 Altered mental status, unspecified; Z79.899 Other long term (current) drug therapy; W19.XXXA Unspecified fall, initial encounter; Y93.89 Activity, other specified; Y92.098 Other place in other non-institutional residence as the place of occurrence of the external cause; Y99.8 Other external cause status
CPT/HCPCS: 36415; 70450; 80048; 80307; 83735; 84100; 99284

== ENCOUNTER 2019-10-21 19:16 | Inpatient (IN) | payer MEDICAID ==
[~2019-10-21] VITALS: Ht 188 cm; Wt 145.8 kg
--- NOTE | 2019-10-21 19:16 | NUR ---
TASK RN: KRISTIN LOPEZ FROM [facility] WHERE PT WAS FOUND ON GROUND BETWEEN THE BED AND THE WALL. PT REPORTS 'SLIPPING OFF BED' THIS AM AFTER ETOH AND 'DECIDING TO SLEEP IT OFF' BEFORE CALLING EMS FOR HELP. PT HYPOXIC ON SCENE WO PULM HX, UNKNOWN CARDIAC HX. RA 80'S. SPO2 TO 96% ON 4L BY NC; RR WNL. PWD; A&OX4; MM DRY. +STRENGTH X ALL EXTREMITIES. L HIP RED, NO OPEN WOUNDS NOTED. PT DENIES LOC/MIDLINE NECK OR BACK PAIN PT ARRIVES WITH DRY STOOL ON LOW BACK/BUTTOCK/LEGS THOUGH REPORTS INDEPENDENTLY SHOWERING YESTERDAY. IV ESTABLISHED, LABS DRAWN. BP/SPO2/ECG MONITORING IN PLACE. NSR ON MONITOR. REPORT TO PRIMARY RNGISELL.
[2019-10-21] MEDS ORDERED: SODIUM CHLORIDE 0.9% 1,000 ML IV ONE (19:18)
[2019-10-21] MEDS ORDERED: PANTOPRAZOLE 80 MG in SODIUM CHLORIDE 0.9% 100 ML IV SCH ×2 (19:18→22:30)
[2019-10-21] MEDS ORDERED: PANTOPRAZOLE 80 MG in SODIUM CHLORIDE 0.9% 50 ML IVPB ONE (19:18)
[2019-10-21] MEDS ORDERED: SODIUM CHLORIDE FLUSH 10ML SYR IVF ONE (19:30)
[2019-10-21 19:49] LABS: BASOPHILS # (AUTO) 0.01 x10^3/uL (0-0.1); BASOPHILS % (AUTO) 0 % (0-1); EOSINOPHILS # (AUTO) 0.01 x10^3/uL (0-0.4); EOSINOPHILS % (AUTO) 0 % (1-7); LYMPHOCYTES # (AUTO) 1.52 x10^3/uL (1-3.4); LYMPHOCYTES % (AUTO) 31 % (22-44); MD NO; MEAN CORPUSCULAR HEMOGLOBIN 35.4 pg (27.5-34.5); MEAN CORPUSCULAR HGB CONC 33.4 g/dL (33.2-36.2); MEAN PLATELET VOLUME 6.9 fL (7.4-10.4); MONOCYTES # (AUTO) 0.29 x10^3/uL (0.2-0.8); MONOCYTES % (AUTO) 6 % (2-9); NEUTROPHILS # (AUTO) 3.07 x10^3/uL (1.8-6.8); NEUTROPHILS % (AUTO) 63 % (42-75); PLATELET COUNT 162 x10^3/uL (130-400); RED BLOOD COUNT 4.03 x10^6/uL (4.38-5.82); RED CELL DISTRIBUTION WIDTH 18.2 % (9.4-14.8)
[2019-10-21 19:54] LABS: PROTHROMBIN TIME 10.6 Seconds (9.6-11.5)
[2019-10-21 19:57] LABS: ANION GAP 14 mmol/L (5-15); CALCIUM 8.3 mg/dL (8.5-10.1); CHLORIDE 93 mmol/L (98-107)
[2019-10-21 20:02] LABS: ALANINE AMINOTRANSFERASE 143 U/L (12-78); ALKALINE PHOSPHATASE 161 U/L (45-117); BILIRUBIN,TOTAL 1.6 mg/dL (0.2-1.0); CREATINE KINASE, TOTAL 621 U/L (39-308); CREATININE 1.22 mg/dL (0.7-1.3); TOTAL PROTEIN 6.5 g/dL (6.4-8.2)
--- NOTE | 2019-10-21 20:06 | NUR ---
2ND PIV PLACED. IV PROTONIX STARTED PER NOV. IVF RUNNING PER NOV. PT COMPLIANT WITH CARE. CONNECTED TO MONITORING. CALL LIGHT IN REACH.
[2019-10-21] MEDS ORDERED: POTASSIUM CHLORIDE 20 MEQ TAB.ER.PRT PO ONE (20:30)
[2019-10-21] MEDS ORDERED: MAGNESIUM SULFATE 1 GM, THIAMINE 100 MG, FOLIC ACID 1 MG, MVI ADULT 10 ML in SODIUM CHL... IV ONE (20:30)
[2019-10-21] MEDS ORDERED: POTASSIUM CHLORIDE 20 MEQ TAB.ER.PRT ONE (20:46)
--- NOTE | 2019-10-21 20:49 | NUR ---
MEDS ADMIN PER NOV. PT RESTING COMFORTABLY ON [place]. YOLIS.
--- NOTE | 2019-10-21 20:54 | NUR ---
REPORT GIVEN TO ISSA WATKINS.
[2019-10-21 21:32] VITALS: BP 103/67
[2019-10-21] MEDS ORDERED: ONDANSETRON ODT 4 MG PO PRN (23:30)
[2019-10-21] MEDS ORDERED: LORazepam 0.5MG TABLET PO PRN (23:30)
[2019-10-21] MEDS ORDERED: POLYETHYLENE GLYCOL 17 GM PACKET PO PRN (23:30)
[2019-10-21] MEDS ORDERED: LORazepam 1MG TABLET PO PRN ×3 (23:30)
[2019-10-21] MEDS ORDERED: DOCUSATE 100 MG CAPSULE PO PRN (23:30)
[2019-10-21] MEDS ORDERED: PROMETHAZINE 25 MG/ML, 1ML IM PRN (23:30)
[2019-10-21] MEDS ORDERED: LORazepam 2 MG/ML, 1ML IV PRN ×4 (23:30)
[2019-10-21] MEDS ORDERED: ONDANSETRON 2MG/ML, 2ML IVPush PRN (23:30)
[2019-10-21] MEDS ORDERED: hydrALAzine 20 MG/ML, 1ML IVPush PRN (23:30)
[2019-10-21] MEDS ORDERED: BISACODYL 10 MG SUPP PR PRN (23:30)
[2019-10-21] MEDS ORDERED: POTASSIUM CHLORIDE 40 MEQ in SODIUM CHLORIDE 0.9% 500 ML IV ONE (23:30)
[2019-10-22] MEDS: PANTOPRAZOLE 40 MG IV IVPush SCH ×3 (00:13→21:28)
[2019-10-22] MEDS: NICOTINE 14MG/24 HR PATCH.TD24 TD SCH ×2 (00:13→21:38)
[2019-10-22] MEDS: OXYcodone IR 5MG TABLET PO PRN (00:14)
[2019-10-22 00:29] LABS: FREE T4 (FREE THYROXINE) 1.05 ng/dL (0.76-1.46)
[2019-10-22 00:35] VITALS: BP 105/59
[2019-10-22] MEDS: morphine SULFATE 10 MG/ML, 1ML IVPush PRN (02:26)
[2019-10-22] MEDS: IPRATROPIUM 0.5 MG/2.5 ML INHA NPPB SCH ×4 (03:30→20:50)
[2019-10-22 05:32] LABS: BASOPHILS # (AUTO) 0.02 x10^3/uL (0-0.1); BASOPHILS % (AUTO) 0 % (0-1); EOSINOPHILS # (AUTO) 0.03 x10^3/uL (0-0.4); EOSINOPHILS % (AUTO) 1 % (1-7); LYMPHOCYTES # (AUTO) 1.18 x10^3/uL (1-3.4); LYMPHOCYTES % (AUTO) 26 % (22-44); MD NO; MEAN CORPUSCULAR HEMOGLOBIN 36.2 pg (27.5-34.5); MEAN CORPUSCULAR HGB CONC 34.2 g/dL (33.2-36.2); MEAN CORPUSCULAR VOLUME 105.9 fL (81-97); MEAN PLATELET VOLUME 6.9 fL (7.4-10.4); MONOCYTES # (AUTO) 0.29 x10^3/uL (0.2-0.8); MONOCYTES % (AUTO) 6 % (2-9); NEUTROPHILS # (AUTO) 3.04 x10^3/uL (1.8-6.8); NEUTROPHILS % (AUTO) 67 % (42-75); PLATELET COUNT 124 x10^3/uL (130-400); RED BLOOD COUNT 3.57 x10^6/uL (4.38-5.82); RED CELL DISTRIBUTION WIDTH 18.3 % (9.4-14.8)
[2019-10-22] MEDS: LORazepam 2 MG/ML, 1ML IV PRN ×2 (05:39→11:29)
[2019-10-22 05:40] LABS: ALBUMIN 2.8 g/dL (3.4-5.0); ANION GAP 11 mmol/L (5-15); CHLORIDE 99 mmol/L (98-107)
[2019-10-22 05:43] LABS: ALANINE AMINOTRANSFERASE 120 U/L (12-78); ALKALINE PHOSPHATASE 141 U/L (45-117); BILIRUBIN,TOTAL 1.5 mg/dL (0.2-1.0); CHOL/HDL RATIO 2.8; CHOLESTEROL, TOTAL 201 mg/dL (140-239); HDL CHOL % 35 % (26-37); HDL CHOLESTEROL (DIRECT) 71 mg/dL (40-60); LDL CHOLESTEROL,CALCULATED 114 mg/dL (54-169); LDL/HDL RATIO 1.6 (0.5-3.0); TOTAL PROTEIN 5.8 g/dL (6.4-8.2); TRIGLYCERIDES 81 mg/dL (50-200); VLDL CHOLESTEROL 16 mg/dL (0-25)
[2019-10-22 06:53] VITALS: BP 133/70
[2019-10-22] MEDS: MULTIVITAMIN 1 TABLET PO SCH (09:59)
[2019-10-22] MEDS: FOLIC ACID 1 MG TABLET PO SCH (09:59)
[2019-10-22] MEDS: THIAMINE 100MG TABLET PO SCH (10:00)
[2019-10-22 13:11] VITALS: BP 142/74
[2019-10-22] MEDS: CHLORDIAZEPOXIDE 25 MG CAPSULE PO SCH ×2 (14:12→21:28)
[2019-10-22 20:00] VITALS: BP 154/82
[2019-10-23] MEDS: LORazepam 2 MG/ML, 1ML IV PRN ×2 (01:25→05:46)
[2019-10-23 01:53] VITALS: BP 165/97
[2019-10-23] MEDS: IPRATROPIUM 0.5 MG/2.5 ML INHA NPPB SCH ×4 (02:52→19:40)
[2019-10-23] MEDS: CHLORDIAZEPOXIDE 25 MG CAPSULE PO SCH ×3 (04:51→21:28)
[2019-10-23 05:22] LABS: ALBUMIN 2.7 g/dL (3.4-5.0); ANION GAP 12 mmol/L (5-15); CALCIUM 8.5 mg/dL (8.5-10.1); CHLORIDE 98 mmol/L (98-107)
[2019-10-23 05:26] LABS: ALANINE AMINOTRANSFERASE 94 U/L (12-78); ALKALINE PHOSPHATASE 147 U/L (45-117); BILIRUBIN,TOTAL 1.9 mg/dL (0.2-1.0); CREATINE KINASE, TOTAL 419 U/L (39-308); CREATININE 0.68 mg/dL (0.7-1.3)
[2019-10-23] MEDS: THIAMINE 100MG TABLET PO SCH (07:41)
[2019-10-23] MEDS: MULTIVITAMIN 1 TABLET PO SCH (07:41)
[2019-10-23] MEDS: FOLIC ACID 1 MG TABLET PO SCH (07:41)
[2019-10-23 08:51] VITALS: BP 152/97
[2019-10-23] MEDS: PANTOPRAZOLE 40 MG IV IVPush SCH ×2 (09:38→21:29)
[2019-10-23 13:25] VITALS: BP 169/99
[2019-10-23] MEDS: LORazepam 1MG TABLET PO PRN ×2 (16:10→20:22)
[2019-10-23 18:24] VITALS: BP 174/96
[2019-10-23] MEDS: POTASSIUM CHLORIDE 20 MEQ TAB.ER.PRT PO SCH (20:22)
[2019-10-24] MEDS ORDERED: POTASSIUM CHLORIDE 20 MEQ TAB.ER.PRT ONE (01:37)
[2019-10-24] MEDS: NICOTINE 14MG/24 HR PATCH.TD24 TD SCH (01:41)
[2019-10-24] MEDS: LORazepam 1MG TABLET PO PRN (01:41)
[2019-10-24] MEDS: POTASSIUM CHLORIDE 20 MEQ TAB.ER.PRT PO SCH (01:41)
[2019-10-24] MEDS: IPRATROPIUM 0.5 MG/2.5 ML INHA NPPB SCH ×4 (02:19→19:02)
[2019-10-24 02:35] VITALS: BP 150/100
[2019-10-24 04:43] LABS: ALBUMIN 2.9 g/dL (3.4-5.0); ANION GAP 12 mmol/L (5-15); CALCIUM 8.5 mg/dL (8.5-10.1); CHLORIDE 99 mmol/L (98-107)
[2019-10-24 04:47] LABS: ALANINE AMINOTRANSFERASE 91 U/L (12-78); ALKALINE PHOSPHATASE 152 U/L (45-117); BILIRUBIN,TOTAL 1.9 mg/dL (0.2-1.0); CREATININE 0.62 mg/dL (0.7-1.3); TOTAL PROTEIN 6.6 g/dL (6.4-8.2)
[2019-10-24 05:21] LABS: MEAN CORPUSCULAR HEMOGLOBIN 36.2 pg (27.5-34.5); MEAN CORPUSCULAR HGB CONC 33.4 g/dL (33.2-36.2); MEAN CORPUSCULAR VOLUME 108.4 fL (81-97); RED BLOOD COUNT 3.86 x10^6/uL (4.38-5.82); RED CELL DISTRIBUTION WIDTH 18.4 % (9.4-14.8)
[2019-10-24] MEDS ORDERED: MAGNESIUM SULFATE PMX 2GM/50ML 50 ML IV ONE (05:30)
[2019-10-24 05:40] LABS: BASOPHILS # (AUTO) 0.02 x10^3/uL (0-0.1); BASOPHILS % (AUTO) 0 % (0-1); EOSINOPHILS # (AUTO) 0.05 x10^3/uL (0-0.4); EOSINOPHILS % (AUTO) 1 % (1-7); LYMPHOCYTES # (AUTO) 1.31 x10^3/uL (1-3.4); LYMPHOCYTES % (AUTO) 25 % (22-44); MD SCAN; MEAN PLATELET VOLUME 8.7 fL (7.4-10.4); MONOCYTES # (AUTO) 0.47 x10^3/uL (0.2-0.8); MONOCYTES % (AUTO) 9 % (2-9); NEUTROPHILS # (AUTO) 3.36 x10^3/uL (1.8-6.8); NEUTROPHILS % (AUTO) 65 % (42-75); PLATELET COUNT 79 x10^3/uL (130-400)
[2019-10-24] MEDS ORDERED: PROPOFOL 100 ML IV PRN (06:30)
[2019-10-24 06:36] LABS: CULTURE INDICATED? YES; MICROSCOPIC INDICATED
[2019-10-24] MEDS: DIAZEPAM 5 MG/ML, 2ML IV SCH ×3 (07:22→18:15)
[2019-10-24] MEDS: POTASSIUM CHLORIDE 20 MEQ, MAGNESIUM SULFATE 2 GM, THIAMINE 200 MG, FOLIC ACID 1 MG, MV... IV SCH (08:56)
[2019-10-24] MEDS: ENOXAPARIN 40 MG/0.4 ML SQ SCH (08:57)
[2019-10-24] MEDS: PANTOPRAZOLE 40 MG IV IVPush SCH ×2 (08:57→09:00)
[2019-10-24] MEDS: MULTIVITAMIN 1 TABLET PO SCH (08:57)
[2019-10-24] MEDS ORDERED: ERGOCALCIFEROL 50,000 UNIT CAPSULE PO SCH (09:00)
[2019-10-24] MEDS: CEFTRIAXONE PMX 1GM/50ML 50 ML IV SCH (13:29)
[2019-10-24] MEDS ORDERED: ETOMIDATE 20 MG/10 ML ONE (14:38)
[2019-10-24] MEDS ORDERED: PROPOFOL 10 MG/ML, 100ML IV ONE (14:38)
[2019-10-24] MEDS ORDERED: ROCURONIUM 10MG/ML,5ML ONE (14:38)
[2019-10-24] MEDS ORDERED: ACETAMINOPHEN 650 MG/20.3 ML UDC PO PRN (15:00)
[2019-10-24] MEDS ORDERED: ALBUMIN HUMAN 25% 100 ML IV ONE (15:00)
[2019-10-25] MEDS: DIAZEPAM 5 MG/ML, 2ML IV SCH ×3 (01:05→11:54)
[2019-10-25] MEDS ORDERED: ALBUTEROL/IPRATROPIUM 2.5MG/0.5MG, 3 ML ONE (01:54)
[2019-10-25] MEDS: ALBUTEROL/IPRATROPIUM 2.5MG/0.5MG, 3 ML NPPB SCH ×5 (02:08→21:00)
[2019-10-25] MEDS: morphine SULFATE 10 MG/ML, 1ML IVPush PRN (04:17)
[2019-10-25 04:40] LABS: MEAN CORPUSCULAR HEMOGLOBIN 37.2 pg (27.5-34.5); MEAN CORPUSCULAR VOLUME 109.5 fL (81-97); MEAN PLATELET VOLUME 8.4 fL (7.4-10.4); PLATELET COUNT 83 x10^3/uL (130-400); RED BLOOD COUNT 3.46 x10^6/uL (4.38-5.82); RED CELL DISTRIBUTION WIDTH 18.8 % (9.4-14.8)
[2019-10-25 04:45] LABS: ANION GAP 13 mmol/L (5-15); CALCIUM 8.4 mg/dL (8.5-10.1); CHLORIDE 102 mmol/L (98-107); CREATININE 0.91 mg/dL (0.7-1.3)
[2019-10-25 05:40] LABS: BASOPHILS # (AUTO) 0.03 x10^3/uL (0-0.1); BASOPHILS % (AUTO) 1 % (0-1); EOSINOPHILS # (AUTO) 0.01 x10^3/uL (0-0.4); EOSINOPHILS % (AUTO) 0 % (1-7); LYMPHOCYTES # (AUTO) 1.04 x10^3/uL (1-3.4); LYMPHOCYTES % (AUTO) 15 % (22-44); MD SCAN; MONOCYTES % (AUTO) 9 % (2-9); NEUTROPHILS # (AUTO) 5.27 x10^3/uL (1.8-6.8); NEUTROPHILS % (AUTO) 76 % (42-75)
[2019-10-25] MEDS: POTASSIUM CHLORIDE 20 MEQ, MAGNESIUM SULFATE 2 GM, THIAMINE 200 MG, FOLIC ACID 1 MG, MV... IV SCH (07:00)
[2019-10-25] MEDS: PANTOPRAZOLE 40 MG IV IVPush SCH (08:35)
[2019-10-25] MEDS: POTASSIUM CHLORIDE 10% 40 MEQ/30 ML UDC PO SCH ×2 (08:35→21:00)
[2019-10-25] MEDS: MULTIVITAMIN 1 TABLET PO SCH (08:35)
[2019-10-25 09:47] LABS: HIT RESULT NEGATIVE (NEGATIVE)
[2019-10-25] MEDS ORDERED: FUROSEMIDE 20 MG/2 ML IV ONE ×2 (10:30→15:00)
[2019-10-25] MEDS: CEFTRIAXONE PMX 1GM/50ML 50 ML IV SCH (13:09)
[2019-10-25] MEDS: ENOXAPARIN 40 MG/0.4 ML SQ SCH (13:09)
[2019-10-25] MEDS: FUROSEMIDE 20 MG/2 ML IV STA ×2 (14:50→15:02)
[2019-10-26] MEDS ORDERED: FUROSEMIDE 20 MG/2 ML IV ONE (01:30)
[2019-10-26] MEDS ORDERED: FUROSEMIDE 20 MG/2 ML ONE (01:34)
[2019-10-26] MEDS: ALBUTEROL/IPRATROPIUM 2.5MG/0.5MG, 3 ML NPPB SCH ×5 (03:00→21:00)
[2019-10-26 05:02] LABS: ALBUMIN 2.7 g/dL (3.4-5.0); ANION GAP 7 mmol/L (5-15); CHLORIDE 107 mmol/L (98-107)
[2019-10-26 05:05] LABS: ALANINE AMINOTRANSFERASE 66 U/L (12-78); ALKALINE PHOSPHATASE 132 U/L (45-117); BILIRUBIN,TOTAL 1.5 mg/dL (0.2-1.0); CREATININE 0.69 mg/dL (0.7-1.3); TOTAL PROTEIN 6.5 g/dL (6.4-8.2)
[2019-10-26] MEDS: POTASSIUM CHLORIDE 20 MEQ, MAGNESIUM SULFATE 2 GM, THIAMINE 200 MG, FOLIC ACID 1 MG, MV... IV SCH (07:52)
[2019-10-26] MEDS: MULTIVITAMIN 1 TABLET PO SCH (09:31)
[2019-10-26] MEDS: PANTOPRAZOLE 40 MG IV IVPush SCH (09:31)
[2019-10-26] MEDS ORDERED: SODIUM PHOSPHATE 20 MMOL in SODIUM CHLORIDE 0.9% 500 ML IV ONE (10:30)
[2019-10-26] MEDS: OXYcodone IR 5MG TABLET PO PRN ×2 (11:46→21:35)
[2019-10-26] MEDS: ENOXAPARIN 40 MG/0.4 ML SQ SCH (11:48)
[2019-10-26] MEDS: CEFTRIAXONE PMX 1GM/50ML 50 ML IV SCH (13:17)
[2019-10-26] MEDS: THIAMINE 100MG TABLET PO SCH (21:34)
[2019-10-27] MEDS: ALBUTEROL/IPRATROPIUM 2.5MG/0.5MG, 3 ML NPPB SCH ×4 (03:00→21:06)
[2019-10-27] MEDS: OXYcodone IR 5MG TABLET PO PRN ×3 (04:38→20:44)
[2019-10-27 05:14] LABS: ALANINE AMINOTRANSFERASE 69 U/L (12-78); ALBUMIN 2.2 g/dL (3.4-5.0); ANION GAP 4 mmol/L (5-15); CALCIUM 8.7 mg/dL (8.5-10.1); CHLORIDE 104 mmol/L (98-107); CREATININE 0.69 mg/dL (0.7-1.3)
[2019-10-27 05:16] LABS: ALKALINE PHOSPHATASE 120 U/L (45-117); TOTAL PROTEIN 5.7 g/dL (6.4-8.2)
[2019-10-27 05:22] LABS: BASOPHILS # (AUTO) 0.01 x10^3/uL (0-0.1); BASOPHILS % (AUTO) 0 % (0-1); EOSINOPHILS # (AUTO) 0.16 x10^3/uL (0-0.4); EOSINOPHILS % (AUTO) 4 % (1-7); LYMPHOCYTES # (AUTO) 1.03 x10^3/uL (1-3.4); LYMPHOCYTES % (AUTO) 28 % (22-44); MD NO; MEAN CORPUSCULAR HEMOGLOBIN 36.5 pg (27.5-34.5); MEAN CORPUSCULAR HGB CONC 33.6 g/dL (33.2-36.2); MEAN CORPUSCULAR VOLUME 108.7 fL (81-97); MEAN PLATELET VOLUME 8.1 fL (7.4-10.4); MONOCYTES # (AUTO) 0.67 x10^3/uL (0.2-0.8); MONOCYTES % (AUTO) 18 % (2-9); NEUTROPHILS # (AUTO) 1.84 x10^3/uL (1.8-6.8); NEUTROPHILS % (AUTO) 50 % (42-75); PLATELET COUNT 141 x10^3/uL (130-400); RED BLOOD COUNT 3.37 x10^6/uL (4.38-5.82); RED CELL DISTRIBUTION WIDTH 17.9 % (9.4-14.8)
[2019-10-27] MEDS ORDERED: POTASSIUM CHLORIDE 10% 40 MEQ/30 ML UDC PO SCH (09:00)
[2019-10-27] MEDS: MULTIVITAMIN 1 TABLET PO SCH (09:01)
[2019-10-27] MEDS: THIAMINE 100MG TABLET PO SCH ×2 (09:01→20:40)
[2019-10-27] MEDS: SULFAMETH./TRIMETHOPRIM DS 800MG/160MG TABLET PO SCH ×2 (12:35→20:41)
[2019-10-27] MEDS: ENOXAPARIN 40 MG/0.4 ML SQ SCH (13:08)
[2019-10-27 14:32] VITALS: BP 106/63
[2019-10-27 20:24] VITALS: BP 110/70
[2019-10-27] MEDS ORDERED: POTASSIUM CHLORIDE 20 MEQ TAB.ER.PRT PO SCH (21:00)
[2019-10-28 01:05] VITALS: BP 104/68
[2019-10-28] MEDS: ALBUTEROL/IPRATROPIUM 2.5MG/0.5MG, 3 ML NPPB SCH ×2 (04:23→08:40)
[2019-10-28 07:56] VITALS: BP 150/93
[2019-10-28] MEDS: SULFAMETH./TRIMETHOPRIM DS 800MG/160MG TABLET PO SCH (10:59)
[2019-10-28] MEDS: MULTIVITAMIN 1 TABLET PO SCH (10:59)
[2019-10-28] MEDS: THIAMINE 100MG TABLET PO SCH (10:59)
[2019-10-28] MEDS ORDERED: ERGO500017 PO (12:51)
[2019-10-28] MEDS ORDERED: DISU250T2 PO (12:51)
[2019-10-28] MEDS ORDERED: Sulfameth./Trimethoprim Ds PO (12:51)
[2019-10-28] MEDS: ENOXAPARIN 40 MG/0.4 ML SQ SCH (13:00)
== END 2019-10-28 14:32 | disposition home or self-care (01) | DRG 208 ==
LOC: ED 20:30 → 4WST 21:07 → 4EST 10-23 06:26 → CCU 10-24 04:33 → 4EST 10-27 09:40 → DCLOUNGE 10-28 14:20
PROVIDERS: ADMIT Internal Medicine; ATTEND Internal Medicine
PROC: 5A1935Z Respiratory Ventilation, Less than 24 Consecutive Hours (ICD-10-PCS; principal; 2019-10-24)
PROC: 0BH17EZ Insertion of Endotracheal Airway into Trachea, Via Natural or Artificial Opening (ICD-10-PCS; 2019-10-24)
DX: J96.21 Acute and chronic respiratory failure with hypoxia (principal); G93.41 Metabolic encephalopathy; R53.2 Functional quadriplegia; J15.211 Pneumonia due to Methicillin susceptible Staphylococcus aureus; F10.231 Alcohol dependence with withdrawal delirium; M62.82 Rhabdomyolysis; N39.0 Urinary tract infection, site not specified; E66.2 Morbid (severe) obesity with alveolar hypoventilation; Z68.41 Body mass index [BMI] 40.0-44.9, adult; J44.0 Chronic obstructive pulmonary disease with (acute) lower respiratory infection; Z99.11 Dependence on respirator [ventilator] status; K29.20 Alcoholic gastritis without bleeding; K70.10 Alcoholic hepatitis without ascites; I10 Essential (primary) hypertension; B96.20 Unspecified Escherichia coli [E. coli] as the cause of diseases classified elsewhere; E78.5 Hyperlipidemia, unspecified; S61.512A Laceration without foreign body of left wrist, initial encounter; E87.6 Hypokalemia; F17.210 Nicotine dependence, cigarettes, uncomplicated; F32.9 Major depressive disorder, single episode, unspecified; K76.0 Fatty (change of) liver, not elsewhere classified; Z51.5 Encounter for palliative care; Z86.74 Personal history of sudden cardiac arrest; W18.39XA Other fall on same level, initial encounter; Y93.89 Activity, other specified; Y92.098 Other place in other non-institutional residence as the place of occurrence of the external cause; Y99.8 Other external cause status
CPT/HCPCS: 36415; 36600; 72220; 74018; 96374; 99285; J7620; J7644; 70450; 71045; 76700; 80048; 80053; 80061; 80307; 81001; 82140; 82306; 82533; 82550; 82607; 82803; 83036; 83690; 83735; 84100; 84439; 84443; 85025; 85610; 86022; 86850; 86900; 87070; 87077; 87081; 87086; 87186; 87205; 93005; 94002; 94003; 94150; 94640; 94664; 94667; 94668; G0378; J0696; J1650; J2704; J3360; J3411; J3475; J3480; P9047; C9113; J1940; J2060; J2270; J7030; J7040

== ENCOUNTER 2021-05-12 20:43 | Emergency (ER) | payer MEDICAID ==
[~2021-05-12] VITALS: Ht 177.8 cm; Wt 113.6 kg
[~2021-05-12 20:43] MED LIST changes: +AMLO-211 PO; -AMLO10TA8 PO; -ASPI-515 PO; +ASPI-963 PO; -BUSP7.5T3 PO; +BUSP7.5T5 PO; +DISU250T2 PO; +ERGO500017 PO; +Sulfameth./Trimethoprim Ds PO
[2021-05-12 21:26] LABS: BASOPHILS % (AUTO) 1 % (0-1); EOSINOPHILS % (AUTO) 0 % (1-7); LYMPHOCYTES % (AUTO) 31 % (22-44); MEAN CORPUSCULAR HEMOGLOBIN 32.8 pg (27.5-34.5); MEAN CORPUSCULAR HGB CONC 34.1 g/dL (33.2-36.2); MEAN PLATELET VOLUME 6.9 fL (7.4-10.4); MONOCYTES % (AUTO) 11 % (2-9); NEUTROPHILS % (AUTO) 56 % (42-75); PLATELET COUNT 341 x10^3/uL (130-400); RED BLOOD COUNT 4.88 x10^6/uL (4.38-5.82); RED CELL DISTRIBUTION WIDTH 16.8 % (9.4-14.8)
[2021-05-12] MEDS ORDERED: SODIUM CHLORIDE FLUSH 10ML SYR IVF ONE (21:30)
[2021-05-12] MEDS ORDERED: ONDANSETRON ODT 4 MG ONE (21:32)
[2021-05-12 21:35] LABS: ALBUMIN 3.3 g/dL (3.4-5.0); ANION GAP 13 mmol/L (5-15); CALCIUM 8.5 mg/dL (8.5-10.1); CHLORIDE 101 mmol/L (98-107)
[2021-05-12 21:46] LABS: ALANINE AMINOTRANSFERASE 51 U/L (12-78); ALKALINE PHOSPHATASE 67 U/L (45-117); BILIRUBIN,TOTAL 0.5 mg/dL (0.2-1.0); TOTAL PROTEIN 7.3 g/dL (6.4-8.2); TROPONIN I < 0.015 ng/mL (0.000-0.045)
[2021-05-12] MEDS ORDERED: ONDANSETRON ODT 4 MG PO ONE (22:00)
[2021-05-12 22:17] VITALS: BP 93/41
--- NOTE | 2021-05-12 22:39 | NUR ---
patient ambulated without assistance, alert and oriented times 4, VSS, cab voucher filled out for patient for discharge home
== END 2021-05-12 22:43 | disposition home or self-care (01) ==
LOC: ED 20:53
DX: R00.2 Palpitations (principal); F19.10 Other psychoactive substance abuse, uncomplicated; F10.20 Alcohol dependence, uncomplicated; Y90.9 Presence of alcohol in blood, level not specified
CPT/HCPCS: 36415; 71045; 80053; 80320; 83735; 83880; 84484; 85025; 93005; 99285; Q0162; G0480